=== PATIENT | male | born 1980 | race Caucasian/White ===

== ENCOUNTER → 2016-10-31 | Outpatient (REF) | payer OTHER | LOC: M SFHCLERA 13:36 | PROVIDERS: ATTEND Nurse Practitioner Family | DX: R50.9 Fever, unspecified (principal) ==

== ENCOUNTER → 2017-02-17 | Outpatient (CLI) | payer BC, OTHER | LOC: M RAD 09:05 | PROVIDERS: ATTEND Physician Assistant Medical | DX: R10.84 Generalized abdominal pain (principal); R11.2 Nausea with vomiting, unspecified; R68.81 Early satiety; Z53.9 Procedure and treatment not carried out, unspecified reason ==

== ENCOUNTER → 2017-04-01 | Outpatient (REF) | payer OTHER ==
[~2017-04-01] MED LIST: FISH1000 PO; MAGN30TA2 PO; MULT1TAB10 PO; POTA75TA PO; PROBCAP4 PO; VITA500C2 PO; VITAPOW41 XX
[2017-04-01 12:11] LABS: ANION GAP 8 MEQ/L (8-16); BLOOD UREA NITROGEN 14 MG/DL (7-18); CALCIUM LEVEL 8.5 MG/DL (8.5-10.1); CARBON DIOXIDE LEVEL 27 MEQ/L (21-32); CHLORIDE LEVEL 107 MEQ/L (98-107); CHOLESTEROL LEVEL 243 MG/DL (<200); CREATININE FOR GFR 0.78 MG/DL (0.70-1.30); GLOMERULAR FILTRATION RATE > 60.0 (>60); GLUCOSE, FASTING 96 MG/DL (70-105); POTASSIUM SERUM 4.6 MEQ/L (3.5-5.1); SODIUM LEVEL 142 MEQ/L (136-145); TRIGLYCERIDES LEVEL 173 MG/DL (<150)
== END ==
LOC: M SFHCLERA 09:35
PROVIDERS: ATTEND Family Medicine
DX: E66.09 Other obesity due to excess calories (principal)

== ENCOUNTER → 2017-04-06 | Outpatient (CLI) | payer BC, OTHER ==
--- NOTE | 2017-04-06 10:19 | REP ---
Gastric emptying nuclear scintigraphy: History: Generalized abdominal pain, nausea vomiting, ascites, 14 pounds weight loss. Technique: 1.02 mCi of technetium-99m sulfur colloid was ingested in two scrambled eggs and 6 ounces of water and sequential anterior and posterior images are acquired for an 89-minute imaging observation period. Regions of interest are drawn around the stomach to plot gastric emptying. Scintigraphic findings: Expected T1/2 is 90 minutes. 64 % emptying is observed in this patient during the 89-minute imaging observation period, for a calculated T1/2 in this patient of 54 minutes. Impression: Normal gastric emptying. Signed by Nish Corral MD 04/06/2017 10:10 A
== END ==
LOC: M RAD 07:44
PROVIDERS: ATTEND Physician Assistant Medical
DX: R10.84 Generalized abdominal pain (principal); R11.2 Nausea with vomiting, unspecified; R68.81 Early satiety
CPT/HCPCS: 78264; A9541

== ENCOUNTER → 2017-04-09 | Outpatient (CLI) | payer BC, OTHER ==
[~2017-04-09] MED LIST changes: +E-Z-GAS II EFFERVESCENT PACKET (SODIUM BICARB./CITRIC ACID/SIMETHICONE) As Ordered ONE; +E-Z-HD 98% w/w 340GM SUSP BTL As Ordered ONE; +E-Z-PAQUE 96% w/w SUSP 176GM BTL As Ordered ONE
--- NOTE | 2017-04-09 16:37 | REP ---
UPPER GI WITH SMALL BOWEL FOLLOW THROUGH: The procedure was performed by STEPHEN Mayen under the direct supervision of Dr. Bermudez. All imaging was reviewed with Dr. Bermudez prior to dictation. The patient was able to ingest liquid barium and air in a quantity sufficient to produce a double contrast examination. The oral and pharyngeal stages of deglutition appeared unremarkable. Esophageal transport was prompt and efficient. There was no evidence of esophagitis, stricture, mucosal ring, or hiatal hernia. Gastroesophageal reflux was not observed on this exam. The stomach austin are normally outlined. The rugal folds are smooth and regular. There was no evidence of gastritis, neoplasm or ulcerative disease. At the distal duodenum there is a 2.5 cm stricture followed by a dilated bowel loop. Distal to that there is a 1.5 cm stricture in the proximal jejunum. This is also followed by another dilated bowel loop. There is another less than 1 cm stricture in the proximal jejunum also followed by a dilated bowel loop. These strictures do not cause significant obstruction. Additional liquid barium was given at the end of the examination in order to perform a small bowel follow through. During fluoroscopy gentle palpation of the small bowel loops showed them to be freely movable and pliable. There is a long segment of narrowing leading up to the terminal ileum. These findings are most consistent with Crohn's disease. IMPRESSION: Three areas of stricture in the duodenum and proximal jejunum ranging from 2.5 cm to less than 1 cm. These strictures do not appear to be causing significant obstruction. Long segment of narrowing in the terminal ileum. These findings are most consistent with Crohn's disease. Fluoroscopy time was 10 minutes and 56 seconds. Reviewed by STEPHEN Cuello 04/09/2017 04:46 PEdited and Signed by Ken Bermudez MD 04/12/2017 08:57 A
== END ==
LOC: M RAD 08:37
PROVIDERS: ATTEND Physician Assistant Medical
DX: R11.2 Nausea with vomiting, unspecified (principal); R14.0 Abdominal distension (gaseous); R10.84 Generalized abdominal pain

== ENCOUNTER 2017-04-13 07:28 | Outpatient (CLI) | payer BC, OTHER ==
[~2017-04-13] VITALS: Ht 177.8 cm; Wt 120.2 kg
[~2017-04-13 07:28] MED LIST changes: -E-Z-GAS II EFFERVESCENT PACKET (SODIUM BICARB./CITRIC ACID/SIMETHICONE) As Ordered ONE; -E-Z-HD 98% w/w 340GM SUSP BTL As Ordered ONE; -E-Z-PAQUE 96% w/w SUSP 176GM BTL As Ordered ONE; +LIDOCAINE 2% INJ 100 MG/5 ML SDV (FOR ANES.) As Ordered ONE; +PROPOFOL 200 MG/20 ML VIAL As Ordered ONE
[2017-04-13] MEDS ORDERED: NS 1,000 ML IV SCH (07:45)
--- NOTE | 2017-04-13 08:44 | ROOR ---
Patient Name: Brady Banegas Procedure Date: 04/13/2017 8:19 AM Date of : 1980 Age: 36 Room: [facility] Gender: Male Note Status: Finalized Procedure: Upper GI endoscopy Indications: Epigastric abdominal pain Providers: Elieser RBOLES MD Referring MD: Halie CABALLERO MD Requesting Provider: Medicines: Monitored Anesthesia Care Complications: No immediate complications. Procedure: Pre-Anesthesia Assessment: - The heart rate, respiratory rate, oxygen saturations, blood pressure, adequacy of pulmonary ventilation, and response to care were monitored throughout the procedure. The Endoscope was introduced through the mouth, and advanced to the third part of duodenum. The upper GI endoscopy was accomplished without difficulty. The patient tolerated the procedure well. Findings: The examined esophagus was normal. Mild inflammation was found in the gastric antrum. Biopsies were taken with a cold forceps for Helicobacter pylori testing. Many partially obstructing superficial duodenal ulcers with no stigmata of bleeding were found in the duodenal bulb, in the first portion of the duodenum and in the second portion of the duodenum. The largest lesion was 2 mm in largest dimension. This was biopsied with a cold forceps for histology and evaluation of inflammatory bowel disease. Impression: - Normal esophagus. - Mild Gastritis. Biopsied. - Multiple shallow erosions and ulcerations, along with a deformed duodenum with several stenotic areas in first and second portions of duodenum-scope passes through stenoses (just barely) into third portion of duodenum which is normal. Biopsied--r/o IBD. Recommendation: - Await pathology results. - Fasting Serum gastrin levels (off PPI).(will order today) Elieser Robles MD Elieser ROBLES MD 04/13/2017 8:43:31 AM This report has been signed electronically. Number of Addenda: 0 Note Initiated On: 04/13/2017 8:19 AM Estimated Blood Loss: Estimated blood loss: none.
[2017-04-13] MEDS ORDERED: PROPOFOL 200 MG/20 ML VIAL As Ordered ONE (08:57)
--- NOTE | 2017-04-13 09:06 | ROOR ---
Patient Name: Brady Banegas Procedure Date: 04/13/2017 8:19 AM Date of : 1980 Age: 36 Room: [facility] Gender: Male Note Status: Finalized Procedure: Colonoscopy Indications: Generalized abdominal pain, Exclusion of colitis, Exclusion of irritable bowel syndrome Providers: Elieser ROBLES MD Referring MD: Halie CABALLERO MD Requesting Provider: Medicines: Monitored Anesthesia Care Complications: No immediate complications. Procedure: Pre-Anesthesia Assessment: - The heart rate, respiratory rate, oxygen saturations, blood pressure, adequacy of pulmonary ventilation, and response to care were monitored throughout the procedure. The Colonoscope was introduced through the anus and advanced to 2 cm into the ileum. The colonoscopy was performed without difficulty. The patient tolerated the procedure well. The quality of the bowel preparation was good. Findings: The perianal and digital rectal examinations were normal. The colon (entire examined portion) appeared normal. The terminal ileum contained a benign-appearing, intrinsic moderate stenosis that was non-traversed. Biopsies were taken with a cold forceps for histology. Impression: - The entire examined colon is normal. - Stricture and ulceration erosion in the terminal ileum. Visually suggestive of IBD (crohns disease). Biopsied. Recommendation: - Await pathology results. - Return to my office at the next available appointment. - Perform a CT enterography at appointment to be scheduled. - To discuss todays findings, my office will call you in the next few days to schedule xray and a follow up appointment. Elieser Robles MD Elieser ROBLES MD 04/13/2017 9:05:53 AM This report has been signed electronically. Number of Addenda: 0 Note Initiated On: 04/13/2017 8:19 AM Estimated Blood Loss: Estimated blood loss: none.
[2017-04-13 09:45] VITALS: BP 108/57
[2017-04-24 10:52] LABS: PROMETHEUS IBD ANTIBODIES SEE SEPARATE REPORT
[2017-04-24 10:53] LABS: PROMETHEUS IBD SNP SEE SEPARATE REPORT
== END 2017-04-13 10:03 | disposition home or self-care (01) ==
LOC: M OPP 07:28
PROVIDERS: ATTEND Internal Medicine Gastroenterology
DX: R10.84 Generalized abdominal pain (principal); K56.69 Other intestinal obstruction; K29.70 Gastritis, unspecified, without bleeding; K29.80 Duodenitis without bleeding; K26.9 Duodenal ulcer, unspecified as acute or chronic, without hemorrhage or perforation; F17.290 Nicotine dependence, other tobacco product, uncomplicated

== ENCOUNTER → 2017-05-12 | Outpatient (CLI) | payer BC, OTHER ==
[~2017-05-12] MED LIST changes: -LIDOCAINE 2% INJ 100 MG/5 ML SDV (FOR ANES.) As Ordered ONE; -PROPOFOL 200 MG/20 ML VIAL As Ordered ONE
[2017-05-12 14:15] LABS: BASO % 0.4 % (0.0-1.0); EOS # 0.1 K/mm3 (0.0-0.50); EOS % 1.3 % (0.0-3.0); LARGE UNSTAINED CELL # 0.2 K/mm3 (0.0-0.4); LARGE UNSTAINED CELL % 1.6 % (0.0-4.0); LYMPH # 2.8 K/mm3 (1.5-4.5); LYMPH % 26.1 % (24.0-44.0); MEAN CORPUSCULAR HEMOGLOBIN 28.9 pg (27.0-33.0); MEAN CORPUSCULAR HGB CONC 34.8 g/dl (32.0-36.5); MEAN CORPUSCULAR VOLUME 83.1 fl (80.0-96.0); MONO # 0.4 K/mm3 (0.0-0.8); NEUTROPHILS # 7.1 K/mm3 (1.8-7.7); NEUTROPHILS % 66.6 % (36.0-66.0); PLATELET COUNT, AUTOMATED 279 k/mm3 (150-450); RED CELL DISTRIBUTION WIDTH 12.9 % (11.5-14.5); WHITE BLOOD COUNT 10.6 K/mm3 (4.0-10.0)
[2017-05-12 14:35] LABS: VITAMIN B12 LEVEL 625 PG/ML (247-911)
[2017-05-12 14:36] LABS: FOLATE 20.5 NG/ML (>5.4)
[2017-05-12 15:48] LABS: ALBUMIN 3.9 GM/DL (3.2-5.2); ALBUMIN/GLOBULIN RATIO 1.15 (1.00-1.93); ALKALINE PHOSPHATASE 81 U/L (45-117); ALT/SGPT 45 U/L (12-78); ANION GAP 10 MEQ/L (8-16); AST/SGOT 16 U/L (15-37); BILIRUBIN,TOTAL 0.3 MG/DL (0.2-1.0); BLOOD UREA NITROGEN 10 MG/DL (7-18); CALCIUM LEVEL 9.3 MG/DL (8.5-10.1); CARBON DIOXIDE LEVEL 27 MEQ/L (21-32); CHLORIDE LEVEL 102 MEQ/L (98-107); CREATININE FOR GFR 0.85 MG/DL (0.70-1.30); GLOMERULAR FILTRATION RATE > 60.0 (>60); GLUCOSE, FASTING 124 MG/DL (70-105); POTASSIUM SERUM 4.1 MEQ/L (3.5-5.1); SODIUM LEVEL 139 MEQ/L (136-145); TOTAL PROTEIN 7.3 GM/DL (6.4-8.2)
== END ==
LOC: M LAB 13:14
PROVIDERS: ATTEND Internal Medicine Gastroenterology
DX: K50.012 Crohn's disease of small intestine with intestinal obstruction (principal)

== ENCOUNTER → 2017-06-01 | Outpatient (CLI) | payer BC, OTHER ==
[2017-06-22 07:15] LABS: TPMTGEN1 SEE SEPARATE REPORT
[2017-06-22 07:16] LABS: THIOPURINE METHYLTRANSFERASE 24.3 EU (> 21.0)
== END ==
LOC: M LAB 12:19
PROVIDERS: ATTEND Internal Medicine Gastroenterology
DX: K50.012 Crohn's disease of small intestine with intestinal obstruction (principal)

== ENCOUNTER → 2017-07-02 | Outpatient (CLI) | payer OTHER ==
[2017-07-02 16:20] LABS: BASO # 0.1 10^3/uL (0.0-0.2); BASO % 0.8 % (0.0-1.0); EOS % 0.1 % (0.0-3.0); IMMATURE GRANULOCYTE % 0.4 % (0-0); LYMPH # 3.7 10^3/uL (1.5-4.5); LYMPH % 34.4 % (24.0-44.0); MEAN CORPUSCULAR HEMOGLOBIN 27.4 pg (27.0-33.0); MEAN CORPUSCULAR VOLUME 85.5 fl (80.0-96.0); MONO # 0.9 10^3/uL (0.0-0.8); NEUTROPHILS % 56.3 % (36.0-66.0); PLATELET COUNT, AUTOMATED 290 10^3/uL (150-450); RED CELL DISTRIBUTION WIDTH 13.6 % (11.5-14.5); WHITE BLOOD COUNT 10.7 10^3/uL (4.0-10.0)
[2017-07-02 16:41] LABS: ALBUMIN 3.8 GM/DL (3.2-5.2); ALBUMIN/GLOBULIN RATIO 1.36 (1.00-1.93); ALKALINE PHOSPHATASE 75 U/L (45-117); ALT/SGPT 46 U/L (12-78); ANION GAP 10 MEQ/L (8-16); AST/SGOT 15 U/L (7-37); BILIRUBIN,TOTAL 0.4 MG/DL (0.2-1.0); BLOOD UREA NITROGEN 12 MG/DL (7-18); CARBON DIOXIDE LEVEL 28 MEQ/L (21-32); CHLORIDE LEVEL 103 MEQ/L (98-107); GLOMERULAR FILTRATION RATE > 60.0 (>60); GLUCOSE, FASTING 97 MG/DL (70-105); POTASSIUM SERUM 4.4 MEQ/L (3.5-5.1); SODIUM LEVEL 141 MEQ/L (136-145); TOTAL PROTEIN 6.6 GM/DL (6.4-8.2)
== END ==
LOC: M LRY 12:37
PROVIDERS: ATTEND Internal Medicine Gastroenterology
DX: K50.012 Crohn's disease of small intestine with intestinal obstruction (principal)

== ENCOUNTER 2017-07-10 16:32 | Emergency (ER) | payer BC, OTHER ==
[~2017-07-10] VITALS: Ht 177.8 cm; Wt 128.6 kg
[2017-07-10] MEDS ORDERED: AZAT50TA2 PO (16:46)
[2017-07-10] MEDS ORDERED: OMEP40CA2 PO (16:46)
[2017-07-10] MEDS ORDERED: BUDE3CAP PO (16:46)
[2017-07-10] MEDS ORDERED: PANTOPRAZOLE 40MG INJ (PROTONIX) (C9113) IV ONE (18:30)
[2017-07-10] MEDS ORDERED: methylPREDNISolone INJ 125 MG/2 ML VIAL (J2930) IV ONE (18:30)
[2017-07-10] MEDS ORDERED: NS 1,000 ML IV ONE (18:30)
[2017-07-10] MEDS ORDERED: ONDANSETRON 4MG/2ML VIAL (J2405) IV ONE (18:30)
[2017-07-10 18:37] LABS: BASO # 0.1 10^3/uL (0.0-0.2); BASO % 0.4 % (0.0-1.0); IMMATURE GRANULOCYTE % 0.3 % (0-0); LYMPH # 1.4 10^3/uL (1.5-4.5); LYMPH % 9.1 % (24.0-44.0); MEAN CORPUSCULAR HGB CONC 33.5 g/dl (32.0-36.5); MEAN CORPUSCULAR VOLUME 83.4 fl (80.0-96.0); MONO % 6.4 % (0.0-5.0); NEUTROPHILS % 83.8 % (36.0-66.0); PLATELET COUNT, AUTOMATED 276 10^3/uL (150-450); RED CELL DISTRIBUTION WIDTH 13.3 % (11.5-14.5); WHITE BLOOD COUNT 15.5 10^3/uL (4.0-10.0)
[2017-07-10 18:59] LABS: ALBUMIN 3.9 GM/DL (3.2-5.2); ALBUMIN/GLOBULIN RATIO 1.18 (1.00-1.93); ALKALINE PHOSPHATASE 83 U/L (45-117); ALT/SGPT 37 U/L (12-78); ANION GAP 10 MEQ/L (8-16); AST/SGOT 12 U/L (7-37); BILIRUBIN,DIRECT 0.1 MG/DL (0.0-0.2); BILIRUBIN,TOTAL 0.5 MG/DL (0.2-1.0); BLOOD UREA NITROGEN 11 MG/DL (7-18); CARBON DIOXIDE LEVEL 24 MEQ/L (21-32); CHLORIDE LEVEL 104 MEQ/L (98-107); CREATININE FOR GFR 0.79 MG/DL (0.70-1.30); GLOMERULAR FILTRATION RATE > 60.0 (>60); GLUCOSE, FASTING 93 MG/DL (70-105); POTASSIUM SERUM 4.2 MEQ/L (3.5-5.1); SODIUM LEVEL 138 MEQ/L (136-145); TOTAL PROTEIN 7.2 GM/DL (6.4-8.2)
[2017-07-10] MEDS ORDERED: GASTROGRAFIN SOLUTION 30ML PO ONE (19:00)
[2017-07-10] MEDS ORDERED: ISOVUE-370 76% 100ML VIAL (Q9967) As Ordered ONE (19:52)
[2017-07-10] MEDS ORDERED: GASTROGRAFIN SOLUTION 30ML (Q9963) PO ONE (20:00)
--- NOTE | 2017-07-10 21:30 | REPUSA ---
CT of the abdomen and pelvis with contrast Clinical statement: Pain. Technique: Multiple axial CT images were obtained from the base of the lungs through the floor of the pelvis utilizing 5 mm axial slices after administration of oral and nonionic intravenous contrast. C oronal and sagittal reconstructions were also obtained. No comparison is available. Findings: Chest: The visualized lung bases are clear. Abdomen: The liver, spleen, pancreas, kidneys, gallbladder, and adrenal glands are unremarkable. The aorta is within normal limits. There is no evidence of abdominal lymphadenopathy or ascites. Pelvis: There is a long segment of bowel wall thickening involving the terminal ileum. No obstructive bowel changes are noted. The appendix is normal. The urinary bladder is within normal limits. The ot her pelvic structures appear grossly intact. There is no evidence of pelvic lymphadenopathy or ascite s. Bones: There are no suspicious osseous abnormalities seen. Impression: 1. Focal bowel wall thickening involving the terminal ileum. The remainder of the bowel is unremarkab le. The findings suggest an infectious or inflammatory colitis. Crohn's disease cannot be excluded. F ollow-up is suggested as clinically indicated.
[2017-07-10] MEDS ORDERED: FLAG500T PO (21:51)
[2017-07-10] MEDS ORDERED: CIPR-249 PO (21:51)
[2017-07-10] MEDS ORDERED: ZOFR4TAB3 PO (21:51)
[2017-07-10] MEDS ORDERED: PRED10TA2 PO (21:51)
[2017-07-10 22:10] VITALS: BP 138/73
== END 2017-07-10 22:12 | disposition home or self-care (01) ==
LOC: M ED 16:32
DX: K50.00 Crohn's disease of small intestine without complications (principal); K85.90 Acute pancreatitis without necrosis or infection, unspecified; Z87.891 Personal history of nicotine dependence
CPT/HCPCS: 74177; 80048; 80076; 81001; 83605; 83690; 85025; 96374; 96375; 99284; C9113; J2405; J2930; Q9963; Q9967

== ENCOUNTER 2017-07-13 13:46 | Emergency (ER) | payer BC, OTHER ==
[~2017-07-13] VITALS: Ht 177.8 cm; Wt 124.5 kg
[2017-07-13 13:46] VITALS: BP 125/76
[~2017-07-13 13:46] MED LIST changes: -POTA99TA PO; -VITA1CAP2 PO
[2017-07-14] MEDS ORDERED: POTA99TA PO (08:57)
[2017-07-14] MEDS ORDERED: VITA1CAP2 PO (08:57)
== END 2017-07-13 14:07 | disposition left against medical advice (07) ==
LOC: M ED 13:46
DX: Z53.21 Procedure and treatment not carried out due to patient leaving prior to being seen by health care provider (principal)

== ENCOUNTER → 2017-07-13 | Outpatient (CLI) | payer BC, OTHER ==
[~2017-07-13] MED LIST changes: +AZAT50TA2 PO; +BUDE3CAP PO; +CIPR-249 PO; +FLAG500T PO; +OMEP40CA2 PO; +POTA99TA PO; +PRED10TA2 PO; +VITA1CAP2 PO; +ZOFR4TAB3 PO
[2017-07-13 15:04] LABS: BASO % 0.2 % (0.0-1.0); IMMATURE GRANULOCYTE % 0.7 % (0-0); LYMPH # 1.1 10^3/uL (1.5-4.5); LYMPH % 9.3 % (24.0-44.0); MEAN CORPUSCULAR HEMOGLOBIN 27.7 pg (27.0-33.0); MEAN CORPUSCULAR HGB CONC 33.2 g/dl (32.0-36.5); MEAN CORPUSCULAR VOLUME 83.5 fl (80.0-96.0); MONO # 0.6 10^3/uL (0.0-0.8); MONO % 5.1 % (0.0-5.0); NEUTROPHILS # 10.1 10^3/uL (1.8-7.7); NEUTROPHILS % 84.7 % (36.0-66.0); PLATELET COUNT, AUTOMATED 334 10^3/uL (150-450); RED CELL DISTRIBUTION WIDTH 13.6 % (11.5-14.5); WHITE BLOOD COUNT 11.9 10^3/uL (4.0-10.0)
[2017-07-13 15:34] LABS: VITAMIN B12 LEVEL 595 PG/ML
[2017-07-13 15:39] LABS: ALBUMIN 3.5 GM/DL (3.2-5.2); ALBUMIN/GLOBULIN RATIO 1.06 (1.00-1.93); ALKALINE PHOSPHATASE 71 U/L (45-117); ALT/SGPT 40 U/L (12-78); ANION GAP 10 MEQ/L (8-16); AST/SGOT 12 U/L (7-37); BILIRUBIN,TOTAL 0.4 MG/DL (0.2-1.0); BLOOD UREA NITROGEN 10 MG/DL (7-18); CALCIUM LEVEL 9.2 MG/DL (8.5-10.1); CARBON DIOXIDE LEVEL 25 MEQ/L (21-32); CHLORIDE LEVEL 102 MEQ/L (98-107); CREATININE FOR GFR 0.83 MG/DL (0.70-1.30); GLOMERULAR FILTRATION RATE > 60.0 (>60); GLUCOSE, FASTING 121 MG/DL (70-105); POTASSIUM SERUM 4.3 MEQ/L (3.5-5.1); SODIUM LEVEL 137 MEQ/L (136-145); TOTAL PROTEIN 6.8 GM/DL (6.4-8.2)
== END ==
LOC: M LAB 14:07
PROVIDERS: ATTEND Internal Medicine Gastroenterology
DX: K50.012 Crohn's disease of small intestine with intestinal obstruction (principal)

== ENCOUNTER 2017-07-14 05:36 | Inpatient (IN) | payer BC, OTHER ==
[~2017-07-14] VITALS: Ht 177.8 cm; Wt 121.6 kg
[2017-07-14 06:48] LABS: BASO % 0.3 % (0.0-1.0); IMMATURE GRANULOCYTE % 0.4 % (0-0); LYMPH # 2.4 10^3/uL (1.5-4.5); LYMPH % 17.8 % (24.0-44.0); MEAN CORPUSCULAR HEMOGLOBIN 27.7 pg (27.0-33.0); MEAN CORPUSCULAR HGB CONC 33.9 g/dl (32.0-36.5); MEAN CORPUSCULAR VOLUME 81.5 fl (80.0-96.0); MONO # 1.2 10^3/uL (0.0-0.8); MONO % 8.8 % (0.0-5.0); NEUTROPHILS # 9.7 10^3/uL (1.8-7.7); NEUTROPHILS % 72.7 % (36.0-66.0); PLATELET COUNT, AUTOMATED 320 10^3/uL (150-450); RED CELL DISTRIBUTION WIDTH 13.4 % (11.5-14.5); WHITE BLOOD COUNT 13.4 10^3/uL (4.0-10.0)
[2017-07-14 06:50] LABS: ALBUMIN 3.5 GM/DL (3.2-5.2); ALKALINE PHOSPHATASE 67 U/L (45-117); ALT/SGPT 40 U/L (12-78); ANION GAP 10 MEQ/L (8-16); AST/SGOT 14 U/L (7-37); BILIRUBIN,DIRECT < 0.1 MG/DL (0.0-0.2); BILIRUBIN,TOTAL 0.4 MG/DL (0.2-1.0); BLOOD UREA NITROGEN 8 MG/DL (7-18); CARBON DIOXIDE LEVEL 23 MEQ/L (21-32); CHLORIDE LEVEL 103 MEQ/L (98-107); CREATININE FOR GFR 0.77 MG/DL (0.70-1.30); GLOMERULAR FILTRATION RATE > 60.0 (>60); GLUCOSE, FASTING 108 MG/DL (70-105); POTASSIUM SERUM 3.5 MEQ/L (3.5-5.1); SODIUM LEVEL 136 MEQ/L (136-145)
[2017-07-14] MEDS ORDERED: NS 1,000 ML IV ONE (07:00)
[2017-07-14 07:13] LABS: AMYLASE 79 U/L (25-115)
[2017-07-14] MEDS ORDERED: MORPHINE 4 MG/ML 1ML SYRINGE IV ONE ×2 (07:15→09:00)
[2017-07-14] MEDS ORDERED: ONDANSETRON 4MG/2ML VIAL (J2405) IV ONE (07:15)
[2017-07-14 07:35] LABS: CHOLESTEROL LEVEL 180 MG/DL (<200); TRIGLYCERIDES LEVEL 138 MG/DL (<150)
--- NOTE | 2017-07-14 08:25 | REP ---
Clinical: Pancreatitis and upper abdominal pain. Technique: Real time garrett scale ultrasound examination using curved array transducer. Findings: Diffuse fatty infiltration the liver is appreciated without focal hepatic lesion identified. The gallbladder is moderately distended measuring 12.8 cm in length and 6 cm diameter with layering sludge. No gallbladder wall thickening, pericholecystic fluid or sonographic Pressley's sign was elicited during examination. Common bile duct is upper limits of normal and 7 mm diameter. Visualized portions of the pancreas are unremarkable. The right kidney is normal in reniform shape without hydronephrosis and measures 12.5 x 6.9 x 6.3 cm. No ascites in the visualized right upper quadrant. Impression: 1. Hepatic steatosis. 2. Distended gallbladder with layering sludge and prominent common bile duct measuring 7 mm diameter. No sonographic Pressley's sign elicited. Signed by Jethro Aldridge MD 07/14/2017 08:15 A
[2017-07-14] MEDS ORDERED: VITA1CAP2 PO (08:57)
[2017-07-14] MEDS ORDERED: POTA99TA PO (08:57)
[2017-07-14] MEDS: ENOXAPARIN 40 MG/0.4 ML SYRINGE (J1650) SC SCH (09:00)
[2017-07-14] MEDS: PANTOPRAZOLE 40MG INJ (PROTONIX) (C9113) IV SCH (09:00)
[2017-07-14] MEDS ORDERED: ONDANSETRON 4MG/2ML VIAL (J2405) IV PRN (10:30)
[2017-07-14] MEDS: NS 1,000 ML IV SCH ×3 (12:48→19:44)
[2017-07-14] MEDS: MORPHINE 2 MG/ML 1ML SYRINGE IV PRN ×2 (12:49→18:42)
[2017-07-14 14:00] VITALS: BP 121/71
--- NOTE | 2017-07-14 16:09 | HPE ---
DATE OF ADMISSION: 07/14/2017 PRIMARY CARE PROVIDER: Dr. Yuki Paulino GASTROINTESTINAL (GI) SPECIALIST: Dr. Robles HISTORY OF PRESENT ILLNESS: The patient is a 36-year-old male with a past medical history significant for Crohn's disease and gastroesophageal reflux disease (GERD) who presented to [facility] on 07/14/2017 for persistent epigastric abdominal pain. The patient was diagnosed with Crohn's disease since six months ago. The patient was started on different medication for his Crohn's. The patient has also been started on Imuran. Last Wednesday, the patient started having epigastric pain with radiation to the upper and lower back. The pain is constant, crampy type of pain. The patient has been taking Tylenol and ibuprofen multiple times in a day. It only offered limited relief. The patient stated that eating food makes the pain worse. The patient came to the emergency room on 07/10/2017 and the patient got the antinausea medication and the patient was given steroid pills. The patient was discharged home from the emergency department (ED). The patient stated that the pain initially improved but recurred within three hours. The patient had a followup with his gastrointestinal (GI) specialist, Dr. Robles, on 07/13/2017 and there is a suspicion that the patient's medication is causing the symptoms, so Imuran has been on hold in the last 24 hours. However, even with the discontinuation of the medication, the patient continued to have persistent symptoms. Therefore, the patient came to [facility] on 07/14/2017 for further evaluation and treatment. PAST MEDICAL HISTORY: 1. Crohn's disease diagnosed in the last six months. 2. Gastroesophageal reflux disease (GERD). PAST SURGICAL HISTORY: 1. Tonsillectomy. 2. Bilateral vasectomy. HOME MEDICATIONS: - budesonide 9 mg by mouth daily - vitamin D 1000 units by mouth daily - Bacid one tablet by mouth daily - multivitamin one tablet by mouth daily - omeprazole 40 mg by mouth daily - Zofran 4 mg by mouth every four hours as needed - prednisone tapering dose SOCIAL HISTORY: The patient has been smoking for the past 20 years but he switched from actual cigarettes to electronic cigarettes since 6-7 years ago. He rarely drinks alcohol. Denies any recreational drug use. 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 REVIEW OF SYSTEMS: GENERAL: No fever. No chills. HEENT: No vision change. No auditory changes. CARDIOVASCULAR: No chest pain. No palpitations. RESPIRATORY: No cough. No sputum production. No wheezes. ABDOMEN: Epigastric upper abdominal pain that started on 07/06/2017. It has been persistent with radiation to the upper and lower back. The patient was diagnosed with Crohn's disease in the last six months. MUSCULOSKELETAL: Denies any other muscle pain or joint pain. NEUROLOGICAL: Denies any numbness or tingling. OBJECTIVE: VITAL SIGNS: Temperature is 97.6, pulse is 80, respiratory rate 20, blood pressure is 117/59, pulse oximetry is 93% on room air. GENERAL: Mild to moderate distress secondary to persistent abdominal pain, alert and oriented times three. HEENT: Normocephalic, atraumatic. Extraocular motor grossly intact. CARDIOVASCULAR: Positive S1, S2, regular rate. LUNGS: Clear to auscultation bilaterally. ABDOMEN: Soft, tender to palpation in the epigastric right upper abdomen with radiation to the posterior back with direct pressure. No rebound. Bowel sounds present. EXTREMITIES: No edema. No cyanosis. LABORATORY DATA: WBC 13.4, hemoglobin 14.7, hematocrit is 43.3, platelet count is 320. Sodium is 136, potassium 3.5, chloride 103, carbon dioxide 23, BUN 8, creatinine 0.77, GFR greater than 60, fasting glucose 108, calcium is 9, total bilirubin 0.4, direct bilirubin less than 0.1, AST 14, ALT 40, alkaline phosphatase is 67, total protein 7, albumin 3.5, triglycerides 138, total cholesterol is 180, LDL is 97.4, amylase is 79, lipase is 68. Gallbladder ultrasound shows hepatic steatosis, distended gallbladder with layering slush and prominent common bile duct measuring 7 mm in diameter. No sonographic Pressley's sign. ASSESSMENT AND PLAN: 1. Pancreatitis. The patient will be admitted to the medical/surgical floor under inpatient status. The patient placed on nothing by mouth. The patient is started on IV normal saline for fluid support. The patient also has IV morphine for pain control. The patient has as-needed IV Zofran. Lipid profile within normal range. The patient's new medication has been discontinued since yesterday, Imuran. We will continue to follow the lipase level. Continue to treat the patient with medical management. No stone is visualized on the gallbladder ultrasound. 2. Crohn's disease. Continue on budesonide. 3. Gastroesophageal reflux disease (GERD), on IV Protonix. 4. Deep vein thrombosis (DVT) prophylaxis, on Lovenox.
[2017-07-14] MEDS: BUDESONIDE EC 3 MG CAP (ENTOCORT EC) PO SCH (18:40)
[2017-07-14 22:00] VITALS: BP 133/74
[2017-07-15] MEDS: MORPHINE 2 MG/ML 1ML SYRINGE IV PRN ×2 (01:06→03:49)
[2017-07-15] MEDS: NS 1,000 ML IV SCH ×2 (03:45→20:05)
[2017-07-15 06:00] VITALS: BP 152/89
[2017-07-15 07:28] LABS: MEAN CORPUSCULAR HEMOGLOBIN 27.8 pg (27.0-33.0); MEAN CORPUSCULAR HGB CONC 33.5 g/dl (32.0-36.5); PLATELET COUNT, AUTOMATED 281 10^3/uL (150-450); RED CELL DISTRIBUTION WIDTH 13.4 % (11.5-14.5); WHITE BLOOD COUNT 10.9 10^3/uL (4.0-10.0)
[2017-07-15 07:33] LABS: ANION GAP 10 MEQ/L (8-16); BLOOD UREA NITROGEN 9 MG/DL (7-18); CALCIUM LEVEL 8.8 MG/DL (8.5-10.1); CARBON DIOXIDE LEVEL 25 MEQ/L (21-32); CHLORIDE LEVEL 104 MEQ/L (98-107); CREATININE FOR GFR 0.67 MG/DL (0.70-1.30); GLOMERULAR FILTRATION RATE > 60.0 (>60); GLUCOSE, FASTING 74 MG/DL (70-105); MAGNESIUM LEVEL 2.1 MG/DL (1.8-2.4); POTASSIUM SERUM 3.7 MEQ/L (3.5-5.1); SODIUM LEVEL 139 MEQ/L (136-145)
[2017-07-15] MEDS: PANTOPRAZOLE 40MG INJ (PROTONIX) (C9113) IV SCH (10:02)
[2017-07-15] MEDS: BUDESONIDE EC 3 MG CAP (ENTOCORT EC) PO SCH (10:03)
[2017-07-15] MEDS: ENOXAPARIN 40 MG/0.4 ML SYRINGE (J1650) SC SCH (10:03)
[2017-07-15 14:00] VITALS: BP 139/80
[2017-07-15] MEDS: ACETAMINOPHEN TAB 650MG DOSE (2X325MG) PO PRN (20:09)
[2017-07-15 22:00] VITALS: BP 124/74
--- NOTE | 2017-07-16 01:08 | IPN ---
DATE OF SERVICE: 07/15/2017 SUBJECTIVE: Patient seen and examined in the room today. Patient stated that the pain is improving; however, it is still persistent, but the pain is tolerable. Patient does not need the intravenous (IV) morphine to help control the pain since 3:50 a.m. this morning. No overnight events reported. OBJECTIVE: VITAL SIGNS: Temperature 98.3, pulse 78, respirations 18, blood pressure 152/89, pulse oximetry is 94% in room air. GENERAL: No sign of acute distress. Oriented times three. HEENT: Normocephalic, atraumatic. Extraocular motor grossly intact. CARDIOVASCULAR: Positive S1, S2, regular rate. LUNGS: Clear to auscultation bilaterally. ABDOMEN: Still some minor tenderness to palpation in the right upper abdomen. Bowel sounds present. No rebound. EXTREMITIES: No edema. No cyanosis. LABORATORY DATA: WBC 10.9, hemoglobin 14.3, hematocrit 42.4, platelet count is 281. Sodium is 139, potassium 3.7, chloride 104, carbon dioxide 25, BUN 9, creatinine 0.67, GFR greater than 60, fasting glucose 74, calcium 8.8, magnesium 2.1, lipase 566. ASSESSMENT: 1. Acute pancreatitis. Patient nothing by mouth. Continue on the intravenous (IV) fluid support. Patient's pain is improving. Lipase continues to trend down. However, patient still has persistent pain. Will continue to follow with repeat lipase. Will consider resuming the diet tomorrow. 2. Crohn's disease. On budesonide. 3. Gastroesophageal reflux disease. On IV Protonix. 4. Deep venous thrombosis (DVT) prophylaxis. On Lovenox. Encourage ambulation.
[2017-07-16] MEDS: NS 1,000 ML IV SCH ×3 (03:54→23:18)
[2017-07-16 06:00] VITALS: BP 151/91
[2017-07-16] MEDS: ACETAMINOPHEN TAB 650MG DOSE (2X325MG) PO PRN ×2 (06:02→20:20)
[2017-07-16 06:30] LABS: MEAN CORPUSCULAR HEMOGLOBIN 27.1 pg (27.0-33.0); MEAN CORPUSCULAR HGB CONC 32.8 g/dl (32.0-36.5); MEAN CORPUSCULAR VOLUME 82.7 fl (80.0-96.0); PLATELET COUNT, AUTOMATED 286 10^3/uL (150-450); RED CELL DISTRIBUTION WIDTH 13.2 % (11.5-14.5); WHITE BLOOD COUNT 10.8 10^3/uL (4.0-10.0)
[2017-07-16 06:47] LABS: ANION GAP 10 MEQ/L (8-16); BLOOD UREA NITROGEN 11 MG/DL (7-18); CALCIUM LEVEL 8.9 MG/DL (8.5-10.1); CARBON DIOXIDE LEVEL 25 MEQ/L (21-32); CHLORIDE LEVEL 102 MEQ/L (98-107); CREATININE FOR GFR 0.69 MG/DL (0.70-1.30); GLOMERULAR FILTRATION RATE > 60.0 (>60); GLUCOSE, FASTING 80 MG/DL (70-105); MAGNESIUM LEVEL 1.9 MG/DL (1.8-2.4); POTASSIUM SERUM 3.7 MEQ/L (3.5-5.1); SODIUM LEVEL 137 MEQ/L (136-145)
[2017-07-16] MEDS: ENOXAPARIN 40 MG/0.4 ML SYRINGE (J1650) SC SCH (07:53)
[2017-07-16] MEDS: BUDESONIDE EC 3 MG CAP (ENTOCORT EC) PO SCH (10:08)
[2017-07-16] MEDS: PANTOPRAZOLE 40MG INJ (PROTONIX) (C9113) IV SCH (10:08)
[2017-07-16 14:00] VITALS: BP 154/84
--- NOTE | 2017-07-16 14:50 | IPNPDOC ---
Text Note Date of Service The patient was seen on 07/16/17. NOTE SUBJECTIVE: Patient seen and examined in the room today. Patient stated that the pain has significant improvement. He has not used morphine for the past 24 hours. He had good bowel movements. He would like to advance the diet. No overnight events reported. OBJECTIVE: VITAL SIGNS: Listed below GENERAL: No sign of acute distress. Oriented times three. HEENT: Normocephalic, atraumatic. Extraocular motor grossly intact. CARDIOVASCULAR: Positive S1, S2, regular rate. LUNGS: Clear to auscultation bilaterally. ABDOMEN: Still some minor tenderness to palpation in the right upper abdomen. Bowel sounds present. No rebound. EXTREMITIES: No edema. No cyanosis. LABORATORY DATA: Listed below ASSESSMENT: 1. Acute pancreatitis. Pain is improving. Patient has been on nothing by mouth. Will advance to liquid diet today. Continue on the intravenous (IV) fluid support. Continue monitoring patient clinically and continue to follow lipase. 2. Crohn's disease. On budesonide. 3. Gastroesophageal reflux disease. On IV Protonix. 4. Deep venous thrombosis (DVT) prophylaxis. On Lovenox. Encourage ambulation. VS,Fishbone, I+O VS, Fishbone, I+O Laboratory Tests 07/16/17 06:02 Red Blood Count 5.31, Mean Corpuscular Volume 82.7, Mean Corpuscular Hemoglobin 27.1, Mean Corpuscular Hemoglobin Concent 32.8, Red Cell Distribution Width 13.2 , Calcium Level 8.9 Vital Signs Date Time Temp Pulse Resp B/P (MAP) Pulse Ox O2 Delivery O2 Flow Rate FiO2 07/16/17 06:00 97.0 75 18 151/91 (111) 97 Room Air I&O- Last 24 Hours up to 6 AM 07/17/17 06:00 Intake Total 1440 ml Balance 1440 ml ROBINSON CHADWICK DO Jul 16, 2017 14:50
[2017-07-16 22:00] VITALS: BP 126/87
[2017-07-17 05:50] LABS: MEAN CORPUSCULAR HEMOGLOBIN 27.6 pg (27.0-33.0); MEAN CORPUSCULAR HGB CONC 33.2 g/dl (32.0-36.5); MEAN CORPUSCULAR VOLUME 83.3 fl (80.0-96.0); PLATELET COUNT, AUTOMATED 340 10^3/uL (150-450); RED CELL DISTRIBUTION WIDTH 13.1 % (11.5-14.5); WHITE BLOOD COUNT 11.5 10^3/uL (4.0-10.0)
[2017-07-17 06:00] VITALS: BP 135/90
[2017-07-17 06:07] LABS: ANION GAP 8 MEQ/L (8-16); BLOOD UREA NITROGEN 8 MG/DL (7-18); CALCIUM LEVEL 9.1 MG/DL (8.5-10.1); CARBON DIOXIDE LEVEL 26 MEQ/L (21-32); CHLORIDE LEVEL 105 MEQ/L (98-107); CREATININE FOR GFR 0.69 MG/DL (0.70-1.30); GLOMERULAR FILTRATION RATE > 60.0 (>60); GLUCOSE, FASTING 90 MG/DL (70-105); MAGNESIUM LEVEL 2.1 MG/DL (1.8-2.4); POTASSIUM SERUM 3.6 MEQ/L (3.5-5.1); SODIUM LEVEL 139 MEQ/L (136-145)
[2017-07-17] MEDS: NS 1,000 ML IV SCH (08:13)
[2017-07-17] MEDS: BUDESONIDE EC 3 MG CAP (ENTOCORT EC) PO SCH (08:13)
[2017-07-17] MEDS: ENOXAPARIN 40 MG/0.4 ML SYRINGE (J1650) SC SCH (08:13)
[2017-07-17] MEDS: PANTOPRAZOLE 40MG INJ (PROTONIX) (C9113) IV SCH (08:13)
--- NOTE | 2017-07-17 17:34 | DSES ---
DATE OF ADMISSION: 07/14/2017 DATE OF DISCHARGE: 07/17/2017 PRIMARY CARE PROVIDER: Dr. Yuki Paulino CONSULTANTS: None. PROCEDURES: None. DISCHARGE DIAGNOSES: 1. Acute pancreatitis. 2. Crohn's disease. 3. Gastroesophageal reflux disease. HOSPITALIZATION COURSE: Patient is a 36-year-old male who presented to [facility] on 07/14/2017 for persistent worsening of abdominal pain. Patient was admitted to [facility] with a diagnosis of acute pancreatitis, possibly due to the medications. Patient was placed on nothing by mouth, started on intravenous (IV) fluid hydration, and patient is also receiving as-needed morphine for pain control. With conservative medical management, patient is able to have improvement of the symptoms, and patient is able to manage the patient without medications with continued improvement of lipase level and clinical picture. Patient is started on a liquid diet first, and patient tolerated oral intake well. Then diet was advanced. On 07/17/2017 patient has almost complete resolution of the nausea, vomiting, and abdominal pain, and patient continues to have improvement of the pancreatic enzymes, and patient deemed stable for discharge with recommendation to continue to advance the diet as tolerated. Patient is recommended to followup with primary care provider in 1-2 weeks. VITAL SIGNS: On the day of discharge, temperature 97.6, pulse 71, respirations 16, blood pressure 135/90, pulse oximetry 97% in room air. LABORATORY DATA: WBC is 11.5, hemoglobin 14.7, hematocrit 44.3, platelet count is 340. Sodium is 139, potassium 3.6, chloride 105, carbon dioxide 26, BUN 8, creatinine 0.69, GFR greater than 60, fasting glucose is 90, calcium 9.1, magnesium 2.1, lipase is 499. IMAGING STUDY: Gallbladder ultrasound shows hepatic steatosis. Distended gallbladder with sludge and prominent common bile duct measuring 7 mm diameter. No sonographic Pressley signs. No gallbladder wall thickening. Common bile duct is upper limit of normal. DISCHARGE MEDICATIONS: - vitamin C 500 mg by mouth daily - budesonide 9 mg by mouth daily - vitamin D3 at 1000 units by mouth daily - Bacid one tablet by mouth daily - multivitamin one tablet by mouth daily - omeprazole 40 mg by mouth daily DISCHARGE INSTRUCTIONS: Discontinue line. Discharge home. Activity as tolerated. Advance diet as tolerated. Patient should followup with primary care provider in 1-2 weeks. Patient is recommended to followup with gastrointestinal (GI) specialist to follow the Crohn disease management. DISCHARGE CONDITION: Stable. DISCHARGE TIME: Greater than 30 minutes.
== END 2017-07-17 14:15 | disposition home or self-care (01) | DRG 282 ==
LOC: M ED 05:36 → M ED INP 10:18 → M MS5PR 12:00
PROVIDERS: ADMIT Internal Medicine; ATTEND Internal Medicine
DX: K85.90 Acute pancreatitis without necrosis or infection, unspecified (principal); K50.90 Crohn's disease, unspecified, without complications; K21.9 Gastro-esophageal reflux disease without esophagitis; Z79.899 Other long term (current) drug therapy; Z87.891 Personal history of nicotine dependence

== ENCOUNTER → 2017-09-16 | Outpatient (REF) | payer OTHER | LOC: M LAB REF 11:11 | DX: K50.012 Crohn's disease of small intestine with intestinal obstruction (principal) ==

== ENCOUNTER → 2017-10-22 | Outpatient (CLI) | payer BC, OTHER ==
[2017-10-22 16:59] LABS: BASO # 0.1 10^3/uL (0.0-0.2); BASO % 0.7 % (0.0-1.0); HEMATOCRIT 43.5 % (42.0-52.0); HEMOGLOBIN 14.4 g/dl (14.0-18.0); IMMATURE GRANULOCYTE % 0.4 % (0-3.0); LYMPH # 3.4 10^3/uL (1.5-4.5); LYMPH % 36.1 % (24.0-44.0); MEAN CORPUSCULAR HEMOGLOBIN 28.2 pg (27.0-33.0); MEAN CORPUSCULAR HGB CONC 33.1 g/dl (32.0-36.5); MEAN CORPUSCULAR VOLUME 85.3 fl (80.0-96.0); MONO # 0.6 10^3/uL (0.0-0.8); MONO % 6.4 % (0.0-5.0); NEUTROPHILS # 5.4 10^3/uL (1.8-7.7); NEUTROPHILS % 56.4 % (36.0-66.0); PLATELET COUNT, AUTOMATED 261 10^3/uL (150-450); RED CELL DISTRIBUTION WIDTH 13.1 % (11.5-14.5); WHITE BLOOD COUNT 9.5 10^3/uL (4.0-10.0)
[2017-10-22 17:36] LABS: ALBUMIN 3.6 GM/DL (3.2-5.2); ALBUMIN/GLOBULIN RATIO 1.24 (1.00-1.93); ALKALINE PHOSPHATASE 92 U/L (45-117); ALT/SGPT 61 U/L (12-78); ANION GAP 8 MEQ/L (8-16); AST/SGOT 17 U/L (7-37); BILIRUBIN,TOTAL 0.2 MG/DL (0.2-1.0); BLOOD UREA NITROGEN 11 MG/DL (7-18); C REACTIVE PROTEIN QUANTITATIV 1.37 MG/DL (0.00-0.30); CALCIUM LEVEL 8.6 MG/DL (8.5-10.1); CARBON DIOXIDE LEVEL 26 MEQ/L (21-32); CHLORIDE LEVEL 106 MEQ/L (98-107); GLOMERULAR FILTRATION RATE > 60.0 (>60); GLUCOSE, FASTING 100 MG/DL (70-100); LIPASE 118 U/L (73-393); POTASSIUM SERUM 4.4 MEQ/L (3.5-5.1); SODIUM LEVEL 140 MEQ/L (136-145); TOTAL PROTEIN 6.5 GM/DL (6.4-8.2)
== END ==
LOC: M LRY 11:52
DX: K50.012 Crohn's disease of small intestine with intestinal obstruction (principal)
CPT/HCPCS: 83690

== ENCOUNTER → 2018-03-04 | Outpatient (CLI) | payer BC, OTHER | LOC: M SLEEP 19:25 | DX: G47.33 Obstructive sleep apnea (adult) (pediatric) (principal); R40.0 Somnolence | CPT/HCPCS: 95810 ==

== ENCOUNTER → 2018-05-15 | Outpatient (CLI) | payer BC, OTHER | LOC: M SLEEP 20:00 | DX: G47.33 Obstructive sleep apnea (adult) (pediatric) (principal) | CPT/HCPCS: 95811 ==

== ENCOUNTER → 2018-06-16 | Outpatient (CLI) | payer BC, OTHER | LOC: M LRY 12:36 | DX: M79.674 Pain in right toe(s) (principal) | CPT/HCPCS: 73660 ==

== ENCOUNTER → 2018-06-27 | Outpatient (REF) | payer OTHER ==
[2018-07-01 00:07] LABS: QuantiFERON-TB Gold Plus Negative (Negative)
== END ==
LOC: M SFHCLERA 14:28
DX: Z11.1 Encounter for screening for respiratory tuberculosis (principal)

== ENCOUNTER → 2018-08-11 | Outpatient (CLI) | payer OTHER ==
[~2018-08-11] MED LIST changes: +POTA99TA PO; +VITA1CAP2 PO; +ZOFR4TAB14 PO; -ZOFR4TAB3 PO
== END ==
LOC: M LRY 09:23
PROVIDERS: ATTEND Internal Medicine Gastroenterology
DX: K50.012 Crohn's disease of small intestine with intestinal obstruction (principal)

== ENCOUNTER 2018-09-28 09:12 | Outpatient (CLI) | payer BC, OTHER ==
[~2018-09-28] VITALS: Ht 177.8 cm; Wt 136.0 kg
[2018-09-28 09:57] VITALS: BP 150/82
[2018-09-28] MEDS ORDERED: USTEKINUMAB 520 MG in NS 146 ML IV ONE (10:00)
[2018-09-28] MEDS ORDERED: 0.22 MICRON FILTER (METHACHOLINE/OCREVUS) XX ONE (10:15)
[2018-09-28 10:40] VITALS: BP 123/70
[2018-09-28] MEDS ORDERED: VARE1TA PO (11:32)
[2018-09-28] MEDS ORDERED: IBUP-1114 PO (11:33)
[2018-09-28] MEDS ORDERED: STEL130I IV (11:35)
[2018-09-28 11:51] VITALS: BP 126/72
[2018-09-28 12:15] VITALS: BP 137/69
[2018-09-28 12:35] VITALS: BP 131/66
== END 2018-09-28 12:35 | disposition home or self-care (01) ==
LOC: M INFU 09:12
PROVIDERS: ATTEND Internal Medicine Gastroenterology
DX: K50.90 Crohn's disease, unspecified, without complications (principal); Z88.8 Allergy status to other drugs, medicaments and biological substances
CPT/HCPCS: 96365; 96366; J3358

== ENCOUNTER → 2019-08-07 | Outpatient (REF) | payer OTHER ==
[~2019-08-07] MED LIST changes: +IBUP-1114 PO; -OMEP40CA2 PO; +OMEP40CA97 PO; +STEL130I IV; +VARE1TA PO; +VITA-183 PO; -VITA1CAP2 PO
== END ==
LOC: M SFHCLERA 09:05
PROVIDERS: ATTEND Family Medicine
DX: Z11.1 Encounter for screening for respiratory tuberculosis (principal)

== ENCOUNTER → 2019-08-09 | Outpatient (CLI) | payer BC, OTHER ==
[2019-08-11 11:33] LABS: HEPATITIS B SURFACE ANTIBODY POSITIVE (POSITIVE); HEPATITIS B SURFACE ANTIGEN NEGATIVE (NEGATIVE)
== END ==
LOC: M LAB 15:46
PROVIDERS: ATTEND Internal Medicine Gastroenterology
DX: K50.00 Crohn's disease of small intestine without complications (principal)

== ENCOUNTER → 2020-08-07 | Outpatient (CLI) | payer BC, OTHER | LOC: M LAB 15:05 | PROVIDERS: ATTEND Family Medicine | DX: Z11.1 Encounter for screening for respiratory tuberculosis (principal) ==

== ENCOUNTER 2021-04-15 13:27 | Outpatient (CLI) | payer BC, OTHER ==
[~2021-04-15] VITALS: Ht 177.8 cm; Wt 120.0 kg
[~2021-04-15 13:27] MED LIST changes: +OMEP40CA4 PO; -OMEP40CA97 PO
[2021-04-15] MEDS ORDERED: VEDOLIZUMAB 300 MG in NS 250 ML IV ONE (14:00)
[2021-04-15 14:25] VITALS: BP 131/80
[2021-04-15 15:04] VITALS: BP 131/80
[2021-04-15 16:15] VITALS: BP 127/72
== END 2021-04-15 16:40 | disposition home or self-care (01) ==
LOC: M INFU 13:27
PROVIDERS: ATTEND Internal Medicine Gastroenterology
DX: K50.90 Crohn's disease, unspecified, without complications (principal); Z88.8 Allergy status to other drugs, medicaments and biological substances
CPT/HCPCS: 96365; J3380

== ENCOUNTER → 2021-04-21 | Outpatient (CLI) | payer BC, OTHER ==
--- NOTE | 2021-04-21 20:11 | REP ---
INDICATION: K85.10 PANCREATITIS/ MRCP. COMPARISON: None. TECHNIQUE: Multiple heavily T2 weighted sequences are obtained in the axial and coronal planes. 3D MIP reconstruction images are performed. FINDINGS: There is no intrahepatic biliary dilatation. The common bile duct is mildly dilated distally, the maximum diameter is 9 mm. There is no gross biliary stricture. There is no evidence of choledocholithiasis. The pancreatic duct mildly dilated in the region of the pancreatic head and body, 4-5 mm in maximum diameter. There is no internal filling defect.. Gallbladder is mildly distended with no wall thickening or edema. No internal filling defect or gallstone is seen. The visualized portions of the liver, spleen, adrenals, pancreas and kidneys are grossly unremarkable. I see no adenopathy or free fluid in the abdomen. IMPRESSION: Mildly dilated common bile duct and pancreatic duct. No evidence of cholelithiasis or choledocholithiasis. <Electronically signed by Ken Bermudez > 04/21/[id number]
== END ==
LOC: M RAD 17:27
PROVIDERS: ATTEND Internal Medicine Gastroenterology
DX: K85.10 Biliary acute pancreatitis without necrosis or infection (principal)

== ENCOUNTER 2021-04-29 13:43 | Outpatient (CLI) | payer BC, OTHER ==
[~2021-04-29] VITALS: Ht 177.8 cm; Wt 120.0 kg
[2021-04-29] MEDS ORDERED: VEDOLIZUMAB 300 MG in NS 250 ML IV ONE (14:00)
[2021-04-29 14:28] VITALS: BP_SYST 135
[2021-04-29 15:36] VITALS: BP 142/77
== END 2021-04-29 15:35 | disposition home or self-care (01) ==
LOC: M INFU 13:43
PROVIDERS: ATTEND Internal Medicine Gastroenterology
DX: K50.90 Crohn's disease, unspecified, without complications (principal); Z88.8 Allergy status to other drugs, medicaments and biological substances
CPT/HCPCS: 96365; J3380

== ENCOUNTER 2021-05-27 14:03 | Outpatient (CLI) | payer BC, OTHER ==
[~2021-05-27 14:03] MED LIST changes: +VEDOLIZUMAB 300 MG in NS 250 ML IV ONE
[2021-05-27 14:15] VITALS: BP 125/66
[2021-05-27 15:30] VITALS: BP 123/57
== END 2021-05-27 15:40 | disposition home or self-care (01) ==
LOC: M INFU 14:03
PROVIDERS: ATTEND Internal Medicine Gastroenterology
DX: K50.90 Crohn's disease, unspecified, without complications (principal); Z88.8 Allergy status to other drugs, medicaments and biological substances
CPT/HCPCS: 96365; J3380

== ENCOUNTER 2021-07-22 14:00 | Outpatient (CLI) | payer BC, OTHER ==
[~2021-07-22] VITALS: Ht 177.8 cm; Wt 125.0 kg
[2021-07-22 14:19] VITALS: BP 145/85
[2021-07-22] MEDS ORDERED: COLA100C5 PO (14:36)
== END 2021-07-22 15:15 | disposition home or self-care (01) ==
LOC: M INFU 14:00
PROVIDERS: ATTEND Internal Medicine Gastroenterology
DX: K50.90 Crohn's disease, unspecified, without complications (principal); Z88.8 Allergy status to other drugs, medicaments and biological substances
CPT/HCPCS: 96365; J3380

== ENCOUNTER → 2021-08-01 | Outpatient (CLI) | payer BC, OTHER ==
[~2021-08-01] MED LIST changes: +COLA100C5 PO; -VEDOLIZUMAB 300 MG in NS 250 ML IV ONE
[2021-08-01 15:47] LABS: BASO # 0.1 10^3/uL (0.0-0.2); BASO % 0.6 % (0.0-1.0); EOS % 0.1 % (0.0-3.0); HEMATOCRIT 45.8 % (42.0-52.0); HEMOGLOBIN 15.2 g/dl (13.5-17.5); LYMPH # 3.6 10^3/uL (1.5-5.0); LYMPH % 33.8 % (24.0-44.0); MEAN CORPUSCULAR HEMOGLOBIN 28.4 pg (27.0-33.0); MEAN CORPUSCULAR HGB CONC 33.2 g/dl (32.0-36.5); MEAN CORPUSCULAR VOLUME 85.4 fl (80.0-96.0); MONO # 0.9 10^3/uL (0.0-0.8); MONO % 8.5 % (2.0-8.0); NEUTROPHILS # 6.1 10^3/uL (1.5-8.5); NEUTROPHILS % 56.7 % (36.0-66.0); PLATELET COUNT, AUTOMATED 265 10^3/uL (150-450); RED BLOOD COUNT 5.36 10^6/uL (4.30-6.10); WHITE BLOOD COUNT 10.8 10^3/uL (4.0-10.0)
[2021-08-01 16:14] LABS: ALBUMIN 4.1 GM/DL (3.2-5.2); ALT/SGPT 28 U/L (12-78); AMYLASE 42 U/L (25-115); BILIRUBIN,TOTAL 0.4 MG/DL (0.2-1.0); BLOOD UREA NITROGEN 19 MG/DL (7-18); CALCIUM LEVEL 9.4 MG/DL (8.5-10.1); CARBON DIOXIDE LEVEL 26 MEQ/L (21-32); CHLORIDE LEVEL 105 MEQ/L (98-107); CREATININE FOR GFR 0.83 MG/DL (0.70-1.30); GLOMERULAR FILTRATION RATE > 60.0 (>60); GLUCOSE, FASTING 100 MG/DL (70-100); LIPASE 108 U/L (73-393); POTASSIUM SERUM 4.1 MEQ/L (3.5-5.1); SODIUM LEVEL 138 MEQ/L (136-145); TOTAL PROTEIN 6.9 GM/DL (6.4-8.2); TRIGLYCERIDES LEVEL 438 MG/DL (<150)
[2021-08-01 16:21] LABS: VITAMIN B12 LEVEL 603 PG/ML (247-911)
== END ==
LOC: M WUC 11:57
PROVIDERS: ATTEND Internal Medicine Gastroenterology
DX: K50.00 Crohn's disease of small intestine without complications (principal)

== ENCOUNTER → 2021-08-01 | Outpatient (CLI) | payer BC, OTHER ==
[2021-08-01 16:22] LABS: ALBUMIN 4.1 GM/DL (3.2-5.2); ALT/SGPT 28 U/L (12-78); BILIRUBIN,TOTAL 0.4 MG/DL (0.2-1.0); BLOOD UREA NITROGEN 18 MG/DL (7-18); CALCIUM LEVEL 9.7 MG/DL (8.5-10.1); CARBON DIOXIDE LEVEL 25 MEQ/L (21-32); CHLORIDE LEVEL 106 MEQ/L (98-107); CHOLESTEROL LEVEL 205 MG/DL (<200); CHOLESTEROL RISK RATIO 4.456 (<5); CREATININE FOR GFR 0.75 MG/DL (0.70-1.30); FREE T4 0.93 NG/DL (0.76-1.46); GLOMERULAR FILTRATION RATE > 60.0 (>60); GLUCOSE, FASTING 95 MG/DL (70-100); HDL CHOLESTEROL 46 MG/DL (>40); NON-HDL-C 159 MG/DL; POTASSIUM SERUM 4.1 MEQ/L (3.5-5.1); SODIUM LEVEL 138 MEQ/L (136-145); TESTOSTERONE 185 NG/DL (241-827); TOTAL PROTEIN 7.1 GM/DL (6.4-8.2); TRIGLYCERIDES LEVEL 451 MG/DL (<150)
== END ==
LOC: M WUC 12:02
PROVIDERS: ATTEND Student in an Organized Health Care Education/Training Program
DX: Z11.1 Encounter for screening for respiratory tuberculosis (principal); R53.83 Other fatigue; E66.9 Obesity, unspecified

== ENCOUNTER 2021-09-16 13:39 | Outpatient (CLI) | payer BC, OTHER ==
[~2021-09-16] VITALS: Ht 177.8 cm; Wt 125.0 kg
[2021-09-16] MEDS ORDERED: VEDOLIZUMAB 300 MG in NS 250 ML IV ONE (14:00)
[2021-09-16 14:27] VITALS: BP 143/82
[2021-09-16 15:30] VITALS: BP 128/78
== END 2021-09-16 15:30 | disposition home or self-care (01) ==
LOC: M INFU 13:39
PROVIDERS: ATTEND Internal Medicine Gastroenterology
DX: K50.90 Crohn's disease, unspecified, without complications (principal); Z88.8 Allergy status to other drugs, medicaments and biological substances
CPT/HCPCS: 96365; J3380

== ENCOUNTER → 2021-09-20 | Outpatient (CLI) | payer BC, OTHER | LOC: M LAB 09:03 | PROVIDERS: ATTEND Urology | DX: R79.89 Other specified abnormal findings of blood chemistry (principal) | CPT/HCPCS: 36415; 82672; 83001; 83002; 84146; 84270; 84402; 84403; G0103 ==

== ENCOUNTER → 2021-10-27 | Outpatient (CLI) | payer BC, OTHER ==
[~2021-10-27] MED LIST changes: +ENTY1INJ IV; +PRAV40TA2 PO; +TEST200I14 IM
== END ==
LOC: M LABSMTC 10:08
PROVIDERS: ATTEND Anesthesiology
DX: Z01.812 Encounter for preprocedural laboratory examination (principal); Z20.822 Contact with and (suspected) exposure to COVID-19

== ENCOUNTER 2021-10-31 11:42 | Day surgery (SDC) | payer BC, OTHER ==
[~2021-10-31] VITALS: Ht 177.8 cm; Wt 134.2 kg
[~2021-10-31 11:42] MED LIST changes: +NS 1,000 ML IV ONE; +propofoL 500 MG/50 ML VIAL As Ordered ONE
[2021-10-31] MEDS ORDERED: LIDOCAINE 2% 100MG/5ML SDV (FOR ANES.) As Ordered ONE (13:19)
[2021-10-31] MEDS ORDERED: propofoL 200 MG/20 ML VIAL As Ordered ONE (13:19)
[2021-10-31] MEDS ORDERED: fentaNYL 100 MCG/2 ML INJECTION As Ordered ONE (13:20)
[2021-10-31 14:20] VITALS: BP 105/51
== END 2021-10-31 14:25 | disposition home or self-care (01) ==
LOC: M OPP 11:42
PROVIDERS: ATTEND Internal Medicine Gastroenterology
DX: K50.012 Crohn's disease of small intestine with intestinal obstruction (principal); K31.89 Other diseases of stomach and duodenum; K31.5 Obstruction of duodenum; R12 Heartburn; G47.33 Obstructive sleep apnea (adult) (pediatric); Z79.899 Other long term (current) drug therapy; Z88.8 Allergy status to other drugs, medicaments and biological substances
CPT/HCPCS: 43235; 45378; J3010

== ENCOUNTER 2021-11-10 14:34 | Outpatient (CLI) | payer BC, OTHER ==
[~2021-11-10] VITALS: Ht 177.8 cm; Wt 128.3 kg
[~2021-11-10 14:34] MED LIST changes: -NS 1,000 ML IV ONE; +VEDOLIZUMAB 300 MG in NS 250 ML IV ONE; -propofoL 500 MG/50 ML VIAL As Ordered ONE
[2021-11-10 14:48] VITALS: BP 140/84
[2021-11-10 15:45] VITALS: BP 132/80
== END 2021-11-10 15:45 | disposition home or self-care (01) ==
LOC: M INFU 14:34
PROVIDERS: ATTEND Internal Medicine Gastroenterology
DX: K50.90 Crohn's disease, unspecified, without complications (principal); Z88.8 Allergy status to other drugs, medicaments and biological substances
CPT/HCPCS: 96365; J3380

== ENCOUNTER 2022-01-12 14:13 | Outpatient (CLI) | payer BC, OTHER ==
[~2022-01-12] VITALS: Ht 177.8 cm; Wt 128.3 kg
[~2022-01-12 14:13] MED LIST changes: -AZAT50TA2 PO; +AZAT50TA37 PO
[2022-01-12 14:41] VITALS: BP 137/72
[2022-01-12 15:33] VITALS: BP 136/78
== END 2022-01-12 15:35 | disposition home or self-care (01) ==
LOC: M INFU 14:13
PROVIDERS: ATTEND Internal Medicine Gastroenterology
DX: K50.90 Crohn's disease, unspecified, without complications (principal); Z88.8 Allergy status to other drugs, medicaments and biological substances
CPT/HCPCS: 96365; J3380

== ENCOUNTER → 2022-01-23 | Outpatient (CLI) | payer BC, OTHER ==
[~2022-01-23] MED LIST changes: -VEDOLIZUMAB 300 MG in NS 250 ML IV ONE
[2022-01-24 20:08] LABS: TESTOSTERONE FREE (DIRECT) 19.5 pg/mL (8.7-25.1)
== END ==
LOC: M WUC 08:50
PROVIDERS: ATTEND Urology
DX: R79.89 Other specified abnormal findings of blood chemistry (principal)

== ENCOUNTER 2022-04-28 13:05 | Outpatient (CLI) | payer BC, OTHER ==
[~2022-04-28] VITALS: Ht 177.8 cm; Wt 128.3 kg
[2022-04-28 13:50] VITALS: BP 146/82
[2022-04-28] MEDS ORDERED: VEDOLIZUMAB 300 MG in NS 250 ML IV ONE (14:00)
[2022-04-28 15:23] VITALS: BP 144/91
== END 2022-04-28 15:25 | disposition home or self-care (01) ==
LOC: M INFU 13:05
PROVIDERS: ATTEND Internal Medicine Gastroenterology
DX: K50.90 Crohn's disease, unspecified, without complications (principal); Z88.8 Allergy status to other drugs, medicaments and biological substances
CPT/HCPCS: 96365; J3380

== ENCOUNTER → 2022-04-29 | Outpatient (CLI) | payer BC, OTHER ==
[2022-04-29 12:55] LABS: HEMATOCRIT 51.2 % (42.0-52.0); HEMOGLOBIN 16.6 g/dl (13.5-17.5); MEAN CORPUSCULAR HEMOGLOBIN 28.2 pg (27.0-33.0); MEAN CORPUSCULAR HGB CONC 32.4 g/dl (32.0-36.5); MEAN CORPUSCULAR VOLUME 87.1 fl (80.0-96.0); PLATELET COUNT, AUTOMATED 263 10^3/uL (150-450); RED BLOOD COUNT 5.88 10^6/uL (4.30-6.10); WHITE BLOOD COUNT 9.2 10^3/uL (4.0-10.0)
[2022-04-29 13:50] LABS: ALBUMIN 4.3 GM/DL (3.2-5.2); ALT/SGPT 47 U/L (12-78); BILIRUBIN,TOTAL 0.7 MG/DL (0.2-1.0); BLOOD UREA NITROGEN 9 MG/DL (7-18); CALCIUM LEVEL 9.7 MG/DL (8.5-10.1); CARBON DIOXIDE LEVEL 28 MEQ/L (21-32); CHLORIDE LEVEL 103 MEQ/L (98-107); CREATININE FOR GFR 0.94 MG/DL (0.70-1.30); GLOMERULAR FILTRATION RATE > 60.0 (>60); GLUCOSE, FASTING 101 MG/DL (70-100); POTASSIUM SERUM 4.2 MEQ/L (3.5-5.1); SODIUM LEVEL 135 MEQ/L (136-145); TOTAL PROTEIN 7.1 GM/DL (6.4-8.2)
[2022-05-01 23:07] LABS: PSA TOTAL 0.6 ng/mL (0.0-4.0); TESTOSTERONE FREE (DIRECT) 23.2 pg/mL (8.7-25.1)
== END ==
LOC: M WUC 08:55
PROVIDERS: ATTEND Urology
DX: R79.89 Other specified abnormal findings of blood chemistry (principal)

== ENCOUNTER 2022-06-23 14:50 | Outpatient (CLI) | payer BC, OTHER ==
[~2022-06-23] VITALS: Ht 177.8 cm; Wt 128.3 kg
[2022-06-23 14:50] VITALS: BP 131/72
[2022-06-23] MEDS ORDERED: VEDOLIZUMAB 300 MG in NS 250 ML IV ONE (15:00)
[2022-06-23 16:05] VITALS: BP 135/76
== END 2022-06-23 16:50 | disposition home or self-care (01) ==
LOC: M INFU 14:50
PROVIDERS: ATTEND Internal Medicine Gastroenterology
DX: K50.90 Crohn's disease, unspecified, without complications (principal); Z88.8 Allergy status to other drugs, medicaments and biological substances
CPT/HCPCS: 96365; J3380

== ENCOUNTER 2022-08-18 13:24 | Outpatient (CLI) | payer BC, OTHER ==
[~2022-08-18] VITALS: Ht 177.8 cm; Wt 128.3 kg
[2022-08-18 13:30] VITALS: BP 133/72
[2022-08-18] MEDS ORDERED: VEDOLIZUMAB 300 MG in NS 250 ML IV ONE (14:30)
[2022-08-18 14:50] VITALS: BP 150/83
== END 2022-08-18 14:50 ==
LOC: M INFU 13:24
PROVIDERS: ATTEND Internal Medicine Gastroenterology
DX: K50.90 Crohn's disease, unspecified, without complications (principal); Z88.8 Allergy status to other drugs, medicaments and biological substances
CPT/HCPCS: 96365; J3380

== ENCOUNTER → 2022-08-22 | Outpatient (CLI) | payer BC, OTHER ==
[2022-08-25 20:07] LABS: TESTOSTERONE FREE (DIRECT) 29.7 pg/mL (8.7-25.1)
== END ==
LOC: M LAB 09:01
PROVIDERS: ATTEND Urology
DX: R79.89 Other specified abnormal findings of blood chemistry (principal)

== ENCOUNTER → 2022-08-22 | Outpatient (CLI) | payer BC, OTHER | LOC: M LAB 08:59 | PROVIDERS: ATTEND Internal Medicine Gastroenterology | DX: K50.00 Crohn's disease of small intestine without complications (principal) ==

== ENCOUNTER → 2022-10-09 | Outpatient (CLI) | payer BC, OTHER ==
[~2022-10-09] VITALS: Ht 177.8 cm; Wt 128.3 kg
[~2022-10-09] MED LIST changes: +VEDOLIZUMAB 300 MG in NS 250 ML IV ONE
[2022-10-09 15:05] VITALS: BP 124/67
== END ==
LOC: M INFU 15:00
PROVIDERS: ATTEND Internal Medicine Gastroenterology
DX: K50.90 Crohn's disease, unspecified, without complications (principal); Z88.8 Allergy status to other drugs, medicaments and biological substances
CPT/HCPCS: 96365; J3380

== ENCOUNTER → 2022-11-10 | Outpatient (CLI) | payer BC, OTHER ==
[~2022-11-10] MED LIST changes: -VEDOLIZUMAB 300 MG in NS 250 ML IV ONE
[2022-11-10 12:25] LABS: HEMATOCRIT 48.1 % (42.0-52.0); HEMOGLOBIN 15.3 g/dl (13.5-17.5); MEAN CORPUSCULAR HEMOGLOBIN 27.9 pg (27.0-33.0); MEAN CORPUSCULAR HGB CONC 31.8 g/dl (32.0-36.5); MEAN CORPUSCULAR VOLUME 87.8 fl (80.0-96.0); PLATELET COUNT, AUTOMATED 271 10^3/uL (150-450); RED BLOOD COUNT 5.48 10^6/uL (4.30-6.10); WHITE BLOOD COUNT 11.8 10^3/uL (4.0-10.0)
[2022-11-11 23:07] LABS: PSA TOTAL 0.6 ng/mL (0.0-4.0); TESTOSTERONE FREE (DIRECT) 17.9 pg/mL (6.8-21.5)
== END ==
LOC: M WUC 09:05
PROVIDERS: ATTEND Urology
DX: R79.89 Other specified abnormal findings of blood chemistry (principal)

== ENCOUNTER 2022-12-10 14:10 | Outpatient (CLI) | payer BC, OTHER ==
[~2022-12-10] VITALS: Ht 177.8 cm; Wt 128.0 kg
[2022-12-10] MEDS ORDERED: VEDOLIZUMAB 300 MG in NS 250 ML IV ONE (14:30)
[2022-12-10 14:36] VITALS: BP 125/68
[2022-12-10 16:07] VITALS: BP 129/81
== END 2022-12-10 16:05 ==
LOC: M INFU 14:10
PROVIDERS: ATTEND Internal Medicine Gastroenterology
DX: K50.90 Crohn's disease, unspecified, without complications (principal); Z88.8 Allergy status to other drugs, medicaments and biological substances
CPT/HCPCS: 96365; J3380

== ENCOUNTER 2023-01-22 12:27 | Inpatient (IN) | payer BC, OTHER ==
[~2023-01-22] VITALS: Ht 177.8 cm; Wt 113.9 kg
[~2023-01-22 12:27] MED LIST changes: +NICOTINE 14 MG/24 HR TRANSDERMAL TD SCH; +PANTOPRAZOLE 40MG VIAL IV SCH
[2023-01-22 13:17] LABS: BASO # 0.1 10^3/uL (0.0-0.2); BASO % 0.5 % (0.0-1.0); HEMATOCRIT 47.9 % (42.0-52.0); HEMOGLOBIN 16.2 g/dl (13.5-17.5); LYMPH % 21.5 % (24.0-44.0); MEAN CORPUSCULAR HEMOGLOBIN 29.3 pg (27.0-33.0); MEAN CORPUSCULAR HGB CONC 33.8 g/dl (32.0-36.5); MEAN CORPUSCULAR VOLUME 86.6 fl (80.0-96.0); MONO # 1.1 10^3/uL (0.0-0.8); MONO % 7.8 % (2.0-8.0); NEUTROPHILS # 9.7 10^3/uL (1.5-8.5); NEUTROPHILS % 69.8 % (36.0-66.0); PLATELET COUNT, AUTOMATED 266 10^3/uL (150-450); RED BLOOD COUNT 5.53 10^6/uL (4.30-6.10); WHITE BLOOD COUNT 13.9 10^3/uL (4.0-10.0)
[2023-01-22 13:41] LABS: ALBUMIN 4.6 G/DL (3.2-5.2); ALKALINE PHOSPHATASE 85 U/L (46-116); ALT/SGPT 19 U/L (7.0-40); AST/SGOT 10 U/L (<34); BILIRUBIN,DIRECT 0.2 MG/DL (<0.4); BILIRUBIN,TOTAL 0.6 MG/DL (0.3-1.2); TOTAL PROTEIN 7.2 G/DL (5.7-8.2)
[2023-01-22] MEDS ORDERED: ONDANSETRON 4MG 2ML VIAL IV ONE (14:05)
[2023-01-22] MEDS ORDERED: NS 1,000 ML IV ONE (14:05)
[2023-01-22] MEDS ORDERED: MORPHINE 2 MG/ML 1ML VIAL IV ONE (14:05)
[2023-01-22 14:14] LABS: LIPASE > 3500 U/L (12-53)
[2023-01-22] MEDS ORDERED: ISOVUE-370 76% 100ML VIAL As Ordered ONE (14:32)
[2023-01-22] MEDS ORDERED: VITMTA PO (15:07)
[2023-01-22] MEDS ORDERED: ZINC50TA14 PO (15:07)
[2023-01-22] MEDS ORDERED: MAGN400T2 PO (15:07)
[2023-01-22] MEDS ORDERED: VITA100093 PO (15:07)
[2023-01-22] MEDS ORDERED: POTA99CA2 PO (15:07)
[2023-01-22] MEDS ORDERED: HOME MED LIST COMPLETE! XX SCH (15:10)
[2023-01-22] MEDS ORDERED: MORPHINE 2 MG/ML 1ML VIAL IV PRN ×4 (16:10→18:00)
[2023-01-22] MEDS ORDERED: ACETAMINOPHEN TAB 650MG DOSE (2X325MG) PO PRN (16:10)
[2023-01-22] MEDS ORDERED: ONDANSETRON 4MG 2ML VIAL IV PRN (16:10)
[2023-01-22] MEDS ORDERED: NS 1,000 ML IV SCH (16:10)
[2023-01-22 16:47] LABS: RSV AMPLIFICATION NEGATIVE (NEGATIVE)
[2023-01-22 16:48] VITALS: BP 136/80
[2023-01-22 17:52] LABS: INR 0.96; PARTIAL THROMBOPLASTIN TIME 27.8 SECONDS (24.8-34.2)
[2023-01-23] MEDS ORDERED: ENOXAPARIN 40MG/0.4ML SYRINGE (J1650 PER 10MG) SC SCH (09:00)
== END 2023-01-22 18:40 | disposition left against medical advice (07) | DRG 282 ==
LOC: M ED 12:27 → M ED INP 16:10 → ENRESERV 17:01
PROVIDERS: ADMIT Internal Medicine; ATTEND Internal Medicine
DX: K85.90 Acute pancreatitis without necrosis or infection, unspecified (principal); K50.90 Crohn's disease, unspecified, without complications; K21.9 Gastro-esophageal reflux disease without esophagitis; F17.290 Nicotine dependence, other tobacco product, uncomplicated; E29.1 Testicular hypofunction; Z79.899 Other long term (current) drug therapy; Z88.8 Allergy status to other drugs, medicaments and biological substances

== ENCOUNTER → 2023-02-02 | Outpatient (CLI) | payer BC, OTHER ==
[~2023-02-02] VITALS: Ht 177.8 cm; Wt 122.9 kg
[~2023-02-02] MED LIST changes: +MAGN400T2 PO; -NICOTINE 14 MG/24 HR TRANSDERMAL TD SCH; -PANTOPRAZOLE 40MG VIAL IV SCH; +POTA99CA2 PO; +VEDOLIZUMAB 300 MG in NS 250 ML IV ONE; +VITA100093 PO; +VITMTA PO; +ZINC50TA14 PO
[2023-02-02 15:09] VITALS: BP 125/66; O2SAT 100
[2023-02-02 15:45] VITALS: BP 113/64; O2SAT 97
== END ==
LOC: M INFU 14:58
PROVIDERS: ATTEND Internal Medicine Gastroenterology
DX: K50.90 Crohn's disease, unspecified, without complications (principal); Z88.8 Allergy status to other drugs, medicaments and biological substances
CPT/HCPCS: 96365; J3380

== ENCOUNTER → 2023-03-01 | Outpatient (CLI) | payer BC, OTHER ==
[~2023-03-01] MED LIST changes: -VEDOLIZUMAB 300 MG in NS 250 ML IV ONE
[2023-03-01 13:53] LABS: ALKALINE PHOSPHATASE 79 U/L (46-116); ALT/SGPT 12 U/L (7.0-40); AST/SGOT < 8 U/L (<34); BILIRUBIN,TOTAL 0.4 MG/DL (0.3-1.2); BLOOD UREA NITROGEN 13 MG/DL (9-23); CALCIUM LEVEL 9.1 MG/DL (8.5-10.1); CARBON DIOXIDE LEVEL 29 MMOL/L (20-31); CHLORIDE LEVEL 105 MMOL/L (98-107); CHOLESTEROL LEVEL 146 MG/DL (<200); CHOLESTEROL RISK RATIO 3.59 (<5); CREATININE FOR GFR 0.78 MG/DL (0.70-1.30); GLOMERULAR FILTRATION RATE > 60.0 (>60); GLUCOSE, FASTING 95 MG/DL (60-100); HDL CHOLESTEROL 40.6 MG/DL (>40); LDL CHOLESTEROL 83.2 MG/DL (<100); NON-HDL-C 105.4 MG/DL; POTASSIUM SERUM 4.8 MMOL/L (3.5-5.1); SODIUM LEVEL 139 MMOL/L (136-145); TOTAL PROTEIN 6.5 G/DL (5.7-8.2); TRIGLYCERIDES LEVEL 111 MG/DL (<150)
== END ==
LOC: M WUC 09:23
PROVIDERS: ATTEND Student in an Organized Health Care Education/Training Program
DX: E66.9 Obesity, unspecified (principal)

== ENCOUNTER → 2023-03-01 | Outpatient (CLI) | payer BC, OTHER | LOC: M CARPUL 11:05 | PROVIDERS: ATTEND Student in an Organized Health Care Education/Training Program | DX: R07.9 Chest pain, unspecified (principal) ==

== ENCOUNTER → 2023-03-01 | Outpatient (CLI) | payer BC, OTHER ==
[2023-03-02 16:10] LABS: TESTOSTERONE FREE (DIRECT) 21.2 pg/mL (6.8-21.5)
== END ==
LOC: M WUC 09:26
PROVIDERS: ATTEND Urology
DX: R79.89 Other specified abnormal findings of blood chemistry (principal)

== ENCOUNTER 2023-03-30 14:20 | Outpatient (CLI) | payer BC, OTHER ==
[~2023-03-30] VITALS: Ht 177.8 cm; Wt 110.5 kg
[2023-03-30 14:33] VITALS: BP 128/75; O2SAT 97
[2023-03-30] MEDS ORDERED: VEDOLIZUMAB 300 MG in NS 250 ML IV ONE (14:45)
[2023-03-30 15:26] VITALS: BP 139/88; O2SAT 99
== END 2023-03-30 15:30 | disposition home or self-care (01) ==
LOC: M INFU 14:20
PROVIDERS: ATTEND Internal Medicine Gastroenterology
DX: K50.90 Crohn's disease, unspecified, without complications (principal); Z88.8 Allergy status to other drugs, medicaments and biological substances
CPT/HCPCS: 96365; J3380

== ENCOUNTER 2023-05-25 14:45 | Outpatient (CLI) | payer BC, OTHER ==
[~2023-05-25 14:45] MED LIST changes: +VEDOLIZUMAB 300 MG in NS 250 ML IV ONE
[2023-05-25 14:49] VITALS: BP 139/78; O2SAT 97
[2023-05-25 16:00] VITALS: BP 135/92; O2SAT 98
== END 2023-05-25 16:00 | disposition home or self-care (01) ==
LOC: M INFU 14:45
PROVIDERS: ATTEND Internal Medicine Gastroenterology
DX: K50.90 Crohn's disease, unspecified, without complications (principal); Z88.8 Allergy status to other drugs, medicaments and biological substances
CPT/HCPCS: 96365; J3380

== ENCOUNTER → 2023-06-09 | Outpatient (CLI) | payer BC, OTHER ==
[~2023-06-09] MED LIST changes: -VEDOLIZUMAB 300 MG in NS 250 ML IV ONE
[2023-06-09 10:08] LABS: HEMATOCRIT 46.1 % (42.0-52.0); HEMOGLOBIN 15.4 g/dl (13.5-17.5); MEAN CORPUSCULAR HEMOGLOBIN 28.9 pg (27.0-33.0); MEAN CORPUSCULAR HGB CONC 33.4 g/dl (32.0-36.5); MEAN CORPUSCULAR VOLUME 86.5 fl (80.0-96.0); PLATELET COUNT, AUTOMATED 247 10^3/uL (150-450); RED BLOOD COUNT 5.33 10^6/uL (4.30-6.10); WHITE BLOOD COUNT 7.4 10^3/uL (4.0-10.0)
[2023-06-09 10:41] LABS: ALBUMIN 4.1 G/DL (3.2-5.2); ALKALINE PHOSPHATASE 76 U/L (46-116); ALT/SGPT 14 U/L (7.0-40); AST/SGOT 11 U/L (<34); BILIRUBIN,TOTAL 0.5 MG/DL (0.3-1.2); BLOOD UREA NITROGEN 11 MG/DL (9-23); CALCIUM LEVEL 9.5 MG/DL (8.5-10.1); CARBON DIOXIDE LEVEL 29 MMOL/L (20-31); CHLORIDE LEVEL 101 MMOL/L (98-107); CREATININE FOR GFR 0.72 MG/DL (0.70-1.30); GLOMERULAR FILTRATION RATE > 60.0 (>60); GLUCOSE, FASTING 95 MG/DL (60-100); POTASSIUM SERUM 4.8 MMOL/L (3.5-5.1); SODIUM LEVEL 138 MMOL/L (136-145); TOTAL PROTEIN 6.9 G/DL (5.7-8.2)
[2023-06-10 11:10] LABS: PSA TOTAL 0.7 ng/mL (0.0-4.0); TESTOSTERONE FREE (DIRECT) 27.6 pg/mL (6.8-21.5)
== END ==
LOC: M WUC 08:13
PROVIDERS: ATTEND Urology
DX: R79.89 Other specified abnormal findings of blood chemistry (principal)

== ENCOUNTER 2023-07-20 14:30 | Outpatient (CLI) | payer BC, OTHER ==
[2023-07-20 14:37] VITALS: BP 150/82; O2SAT 96
[2023-07-20] MEDS ORDERED: VEDOLIZUMAB 300 MG in NS 250 ML IV ONE (14:45)
[2023-07-20 15:40] VITALS: BP 130/74; O2SAT 100
== END 2023-07-20 15:42 ==
LOC: M INFU 14:30
PROVIDERS: ATTEND Internal Medicine Gastroenterology
DX: K50.90 Crohn's disease, unspecified, without complications (principal); Z88.8 Allergy status to other drugs, medicaments and biological substances
CPT/HCPCS: 96365; J3380

== ENCOUNTER → 2023-08-02 | Outpatient (CLI) | payer BC, OTHER ==
[2023-08-02 11:16] LABS: ALBUMIN 4.1 G/DL (3.2-5.2); ALKALINE PHOSPHATASE 70 U/L (46-116); ALT/SGPT 56 U/L (7.0-40); AST/SGOT 33 U/L (<34); BILIRUBIN,TOTAL 0.6 MG/DL (0.3-1.2); BLOOD UREA NITROGEN 12 MG/DL (9-23); CALCIUM LEVEL 9.3 MG/DL (8.5-10.1); CARBON DIOXIDE LEVEL 29 MMOL/L (20-31); CHLORIDE LEVEL 102 MMOL/L (98-107); CHOLESTEROL LEVEL 186 MG/DL (<200); CHOLESTEROL RISK RATIO 3.77 (<5); CREATININE FOR GFR 0.71 MG/DL (0.70-1.30); GLOMERULAR FILTRATION RATE > 60.0 (>60); GLUCOSE, FASTING 92 MG/DL (60-100); HDL CHOLESTEROL 49.3 MG/DL (>40); LDL CHOLESTEROL 115.7 MG/DL (<100); NON-HDL-C 136.7 MG/DL; SODIUM LEVEL 135 MMOL/L (136-145); TOTAL PROTEIN 6.8 G/DL (5.7-8.2); TRIGLYCERIDES LEVEL 105 MG/DL (<150)
== END ==
LOC: M WUC 08:29
PROVIDERS: ATTEND Family Medicine
DX: E78.1 Pure hyperglyceridemia (principal); Z11.1 Encounter for screening for respiratory tuberculosis

== ENCOUNTER 2023-09-14 13:46 | Outpatient (CLI) | payer BC, OTHER ==
[~2023-09-14] VITALS: Ht 177.8 cm; Wt 107.3 kg
[2023-09-14] MEDS ORDERED: VEDOLIZUMAB 300 MG in NS 250 ML IV ONE (14:30)
[2023-09-14 15:59] VITALS: BP 144/77; O2SAT 98
== END 2023-09-14 15:50 | disposition home or self-care (01) ==
LOC: M INFU 13:46
PROVIDERS: ATTEND Internal Medicine Gastroenterology
DX: K50.90 Crohn's disease, unspecified, without complications (principal); Z88.8 Allergy status to other drugs, medicaments and biological substances
CPT/HCPCS: 96365; J3380

== ENCOUNTER → 2023-09-29 | Outpatient (CLI) | payer BC, OTHER ==
[2023-09-29 10:54] LABS: HEMATOCRIT 50.6 % (42.0-52.0); HEMOGLOBIN 16.7 g/dl (13.5-17.5); MEAN CORPUSCULAR VOLUME 87.8 fl (80.0-96.0); PLATELET COUNT, AUTOMATED 248 10^3/uL (150-450); RED BLOOD COUNT 5.76 10^6/uL (4.30-6.10); WHITE BLOOD COUNT 9.8 10^3/uL (4.0-10.0)
[2023-09-29 11:18] LABS: ALBUMIN 4.4 G/DL (3.2-5.2); ALKALINE PHOSPHATASE 71 U/L (46-116); ALT/SGPT 26 U/L (7.0-40); AST/SGOT 14 U/L (<34); BILIRUBIN,TOTAL 0.6 MG/DL (0.3-1.2); BLOOD UREA NITROGEN 20 MG/DL (9-23); CALCIUM LEVEL 9.6 MG/DL (8.5-10.1); CARBON DIOXIDE LEVEL 30 MMOL/L (20-31); CHLORIDE LEVEL 102 MMOL/L (98-107); CREATININE FOR GFR 0.85 MG/DL (0.70-1.30); GLOMERULAR FILTRATION RATE > 60.0 (>60); GLUCOSE, FASTING 92 MG/DL (60-100); POTASSIUM SERUM 4.9 MMOL/L (3.5-5.1); SODIUM LEVEL 138 MMOL/L (136-145); TOTAL PROTEIN 7.4 G/DL (5.7-8.2)
[2023-09-30 16:09] LABS: TESTOSTERONE FREE (DIRECT) 32.2 pg/mL (6.8-21.5)
[2023-09-30 23:07] LABS: PSA TOTAL 0.7 ng/mL (0.0-4.0)
== END ==
LOC: M WUC 08:03
PROVIDERS: ATTEND Urology
DX: R79.89 Other specified abnormal findings of blood chemistry (principal)

== ENCOUNTER 2023-11-09 14:40 | Outpatient (CLI) | payer BC ==
[~2023-11-09] VITALS: Ht 177.8 cm; Wt 113.6 kg
[2023-11-09 14:45] VITALS: BP 129/68; O2SAT 97
[2023-11-09] MEDS: VEDOLIZUMAB 300 MG in NS 250 ML IV ONE (15:30)
[2023-11-09 16:10] VITALS: BP 131/68; O2SAT 97
== END 2023-11-09 16:10 | disposition home or self-care (01) ==
LOC: M INFU 14:40
PROVIDERS: ATTEND Internal Medicine Gastroenterology
DX: K50.90 Crohn's disease, unspecified, without complications (principal); Z88.8 Allergy status to other drugs, medicaments and biological substances
CPT/HCPCS: 96365; J3380

== ENCOUNTER → 2023-12-11 | Outpatient (CLI) | payer BC ==
[2023-12-11 09:32] LABS: HEMATOCRIT 47.7 % (42.0-52.0); HEMOGLOBIN 15.9 g/dl (13.5-17.5); MEAN CORPUSCULAR HGB CONC 33.3 g/dl (32.0-36.5); PLATELET COUNT, AUTOMATED 239 10^3/uL (150-450); RED BLOOD COUNT 5.48 10^6/uL (4.30-6.10); WHITE BLOOD COUNT 8.9 10^3/uL (4.0-10.0)
[2023-12-11 10:03] LABS: ALKALINE PHOSPHATASE 65 U/L (46-116); ALT/SGPT 20 U/L (7.0-40); AST/SGOT 12 U/L (<34); BILIRUBIN,TOTAL 0.6 MG/DL (0.3-1.2); BLOOD UREA NITROGEN 14 MG/DL (9-23); CALCIUM LEVEL 9.7 MG/DL (8.5-10.1); CARBON DIOXIDE LEVEL 31 MMOL/L (20-31); CHLORIDE LEVEL 102 MMOL/L (98-107); CREATININE FOR GFR 0.79 MG/DL (0.70-1.30); GLOMERULAR FILTRATION RATE > 60.0 (>60); GLUCOSE, FASTING 97 MG/DL (60-100); POTASSIUM SERUM 4.9 MMOL/L (3.5-5.1); SODIUM LEVEL 138 MMOL/L (136-145); TOTAL PROTEIN 6.8 G/DL (5.7-8.2)
[2023-12-13 18:11] LABS: PSA TOTAL 0.6 ng/mL (0.0-4.0); TESTOSTERONE FREE (DIRECT) 25.9 pg/mL (6.8-21.5)
== END ==
LOC: M LAB 08:46
PROVIDERS: ATTEND Urology
DX: R79.89 Other specified abnormal findings of blood chemistry (principal)

== ENCOUNTER 2024-01-04 14:25 | Outpatient (CLI) | payer BC ==
[2024-01-04 14:44] VITALS: BP 155/90; O2SAT 95
[2024-01-04] MEDS: VEDOLIZUMAB 300 MG in NS 250 ML IV ONE (14:54)
[2024-01-04 15:30] VITALS: BP 120/73; O2SAT 97
== END 2024-01-04 15:30 | disposition home or self-care (01) ==
LOC: M INFU 14:25
PROVIDERS: ATTEND Internal Medicine Gastroenterology
DX: K50.90 Crohn's disease, unspecified, without complications (principal); Z88.8 Allergy status to other drugs, medicaments and biological substances
CPT/HCPCS: 96365; J3380

== ENCOUNTER 2024-02-29 13:11 | Outpatient (CLI) | payer BC ==
[~2024-02-29] VITALS: Ht 177.8 cm; Wt 109.0 kg
[2024-02-29 13:10] VITALS: BP 141/81; O2SAT 97
[2024-02-29] MEDS: VEDOLIZUMAB 300 MG in NS 250 ML IV ONE (13:48)
[2024-02-29 14:25] VITALS: BP 135/80; O2SAT 100
== END 2024-02-29 14:30 ==
LOC: M INFU 13:11
PROVIDERS: ATTEND Internal Medicine Gastroenterology
DX: K50.90 Crohn's disease, unspecified, without complications (principal); Z88.8 Allergy status to other drugs, medicaments and biological substances
CPT/HCPCS: 96365; J3380

== ENCOUNTER 2024-04-25 13:46 | Outpatient (CLI) | payer BC ==
[~2024-04-25] VITALS: Ht 177.8 cm; Wt 118.0 kg
[2024-04-25 14:16] VITALS: BP 110/56; O2SAT 97
[2024-04-25] MEDS: VEDOLIZUMAB 300 MG in NS 250 ML IV ONE (14:27)
== END 2024-04-25 15:15 ==
LOC: M INFU 13:46
PROVIDERS: ATTEND Internal Medicine Gastroenterology
DX: K50.90 Crohn's disease, unspecified, without complications (principal); Z88.8 Allergy status to other drugs, medicaments and biological substances
CPT/HCPCS: 96365; J3380

== ENCOUNTER → 2024-06-15 | Outpatient (CLI) | payer BC | LOC: M CARPUL 10:20 | PROVIDERS: ATTEND Internal Medicine Cardiovascular Disease | DX: R07.9 Chest pain, unspecified (principal) ==

== ENCOUNTER 2024-06-20 14:00 | Outpatient (CLI) | payer BC ==
[~2024-06-20] VITALS: Ht 177.8 cm; Wt 118.0 kg
[2024-06-20 14:00] VITALS: BP 156/78; O2SAT 97
[2024-06-20] MEDS: VEDOLIZUMAB 300 MG in NS 250 ML IV ONE (14:20)
[2024-06-20 15:00] VITALS: BP 144/87; O2SAT 96
== END 2024-06-20 15:00 | disposition home or self-care (01) ==
LOC: M INFU 14:00
PROVIDERS: ATTEND Internal Medicine Gastroenterology
DX: K50.90 Crohn's disease, unspecified, without complications (principal); Z88.8 Allergy status to other drugs, medicaments and biological substances
CPT/HCPCS: 96365; J3380

== ENCOUNTER → 2024-07-14 | Outpatient (CLI) | payer BC ==
[2024-07-14 10:14] LABS: HEMATOCRIT 45.7 % (42.0-52.0); HEMOGLOBIN 14.9 g/dl (13.5-17.5); MEAN CORPUSCULAR HEMOGLOBIN 27.3 pg (27.0-33.0); MEAN CORPUSCULAR HGB CONC 32.6 g/dl (32.0-36.5); MEAN CORPUSCULAR VOLUME 83.7 fl (80.0-96.0); PLATELET COUNT, AUTOMATED 260 10^3/uL (150-450); RED BLOOD COUNT 5.46 10^6/uL (4.30-6.10); WHITE BLOOD COUNT 8.9 10^3/uL (4.0-10.0)
[2024-07-14 10:39] LABS: ALBUMIN 3.9 G/DL (3.2-5.2); ALKALINE PHOSPHATASE 67 U/L (40-129); ALT/SGPT 18 U/L (7.0-40); AST/SGOT < 8 U/L (<34); BILIRUBIN,TOTAL 0.4 MG/DL (0.3-1.2); BLOOD UREA NITROGEN 13 MG/DL (9-23); CALCIUM LEVEL 10.1 MG/DL (8.5-10.1); CARBON DIOXIDE LEVEL 29 MMOL/L (20-31); CHLORIDE LEVEL 105 MMOL/L (98-107); CREATININE FOR GFR 0.79 MG/DL (0.70-1.30); GLOMERULAR FILTRATION RATE > 60.0 (>60); GLUCOSE, FASTING 85 MG/DL (60-100); POTASSIUM SERUM 4.6 MMOL/L (3.5-5.1); SODIUM LEVEL 139 MMOL/L (136-145); TOTAL PROTEIN 6.7 G/DL (5.7-8.2)
[2024-07-17 13:57] LABS: PSA FREE 0.3 ng/mL; PSA TOTAL 0.9 ng/mL (< OR = 4.0)
== END ==
LOC: M WUC 08:33
PROVIDERS: ATTEND Urology
DX: E29.1 Testicular hypofunction (principal)

== ENCOUNTER → 2024-07-28 | Outpatient (CLI) | payer BC ==
[2024-07-28 13:20] LABS: BASO # 0.1 10^3/uL (0.0-0.2); BASO % 0.7 % (0.0-1.0); HEMATOCRIT 49.5 % (42.0-52.0); HEMOGLOBIN 16.1 g/dl (13.5-17.5); LYMPH # 3.2 10^3/uL (1.5-5.0); LYMPH % 33.4 % (24.0-44.0); MEAN CORPUSCULAR HEMOGLOBIN 27.9 pg (27.0-33.0); MEAN CORPUSCULAR HGB CONC 32.5 g/dl (32.0-36.5); MEAN CORPUSCULAR VOLUME 85.8 fl (80.0-96.0); MONO # 0.8 10^3/uL (0.0-0.8); MONO % 8.8 % (2.0-8.0); NEUTROPHILS # 5.4 10^3/uL (1.5-8.5); NEUTROPHILS % 56.9 % (36.0-66.0); PLATELET COUNT, AUTOMATED 241 10^3/uL (150-450); RED BLOOD COUNT 5.77 10^6/uL (4.30-6.10); WHITE BLOOD COUNT 9.4 10^3/uL (4.0-10.0)
[2024-07-28 13:29] LABS: ERYTHROCYTE SEDIMENTATION RATE 12 mm/hr (0-15)
[2024-07-28 13:52] LABS: ALKALINE PHOSPHATASE 73 U/L (40-129); ALT/SGPT 20 U/L (7.0-40); AST/SGOT < 8 U/L (<34); BILIRUBIN,TOTAL 0.6 MG/DL (0.3-1.2); BLOOD UREA NITROGEN 12 MG/DL (9-23); C REACTIVE PROTEIN QUANTITATIV < 0.50 MG/DL (<1.0); CARBON DIOXIDE LEVEL 29 MMOL/L (20-31); CHLORIDE LEVEL 102 MMOL/L (98-107); CREATININE FOR GFR 0.79 MG/DL (0.70-1.30); GLOMERULAR FILTRATION RATE > 60.0 (>60); GLUCOSE, FASTING 85 MG/DL (60-100); POTASSIUM SERUM 4.8 MMOL/L (3.5-5.1); SODIUM LEVEL 138 MMOL/L (136-145)
[2024-07-28 13:53] LABS: VITAMIN B12 LEVEL 550 PG/ML (211-911)
[2024-08-01 09:08] LABS: QuantiFERON-TB Gold Plus NEGATIVE (NEGATIVE)
== END ==
LOC: M WUC 08:28
PROVIDERS: ATTEND Internal Medicine Gastroenterology
DX: K50.00 Crohn's disease of small intestine without complications (principal)

== ENCOUNTER 2024-08-15 12:45 | Outpatient (CLI) | payer BC ==
[~2024-08-15] VITALS: Ht 177.8 cm; Wt 118.2 kg
[2024-08-15 12:35] VITALS: BP 122/72; O2SAT 96
[2024-08-15] MEDS: VEDOLIZUMAB 300 MG in NS 250 ML IV ONE (13:36)
[2024-08-15 14:17] VITALS: BP 142/80; O2SAT 96
== END 2024-08-15 14:15 | disposition home or self-care (01) ==
LOC: M INFU 12:45
PROVIDERS: ATTEND Internal Medicine Gastroenterology
DX: K50.90 Crohn's disease, unspecified, without complications (principal); Z88.8 Allergy status to other drugs, medicaments and biological substances
CPT/HCPCS: 96365; J3380

== ENCOUNTER → 2024-10-10 | Outpatient (CLI) | payer BC ==
[~2024-10-10] VITALS: Ht 177.8 cm; Wt 118.0 kg
[2024-10-10 16:22] VITALS: BP 154/99; O2SAT 97
[2024-10-10] MEDS: VEDOLIZUMAB 300 MG in NS 250 ML IV ONE (17:08)
[2024-10-10 17:18] VITALS: BP 142/78; O2SAT 97
== END ==
LOC: M INFU 16:05
PROVIDERS: ATTEND Internal Medicine Gastroenterology
DX: K50.90 Crohn's disease, unspecified, without complications (principal); Z88.8 Allergy status to other drugs, medicaments and biological substances
CPT/HCPCS: 96365; J3380

== ENCOUNTER 2024-12-05 16:13 | Outpatient (CLI) | payer BC ==
[~2024-12-05] VITALS: Ht 177.8 cm; Wt 118.0 kg
[2024-12-05 16:15] VITALS: BP 125/77; O2SAT 96
[2024-12-05] MEDS: VEDOLIZUMAB 300 MG in NS 250 ML IV ONE (16:48)
[2024-12-05 17:29] VITALS: BP 123/75; O2SAT 99
== END 2024-12-05 17:30 ==
LOC: M INFU 16:13
PROVIDERS: ATTEND Internal Medicine Gastroenterology
DX: K50.90 Crohn's disease, unspecified, without complications (principal); Z88.8 Allergy status to other drugs, medicaments and biological substances
CPT/HCPCS: 96365; J3380

== ENCOUNTER → 2025-06-28 | Outpatient (CLI) | payer BC ==
[~2025-06-28] MED LIST changes: -PRAV40TA2 PO; +PRAV40TA85 PO
[2025-06-28 12:11] LABS: PLATELET COUNT, AUTOMATED 311 10^3/uL (150-450)
[2025-06-28 12:13] LABS: ALT/SGPT 26 U/L (7.0-40); AST/SGOT 17 U/L (<34); CALCIUM LEVEL 9.5 MG/DL (8.5-10.1); CARBON DIOXIDE LEVEL 30 MMOL/L (20-31); CHLORIDE LEVEL 102 MMOL/L (98-107); CREATININE FOR GFR 0.75 MG/DL (0.70-1.30); GLOMERULAR FILTRATION RATE > 90.0 (>60); POTASSIUM SERUM 4.8 MMOL/L (3.5-5.1); SODIUM LEVEL 139 MMOL/L (136-145)
== END ==
LOC: M WUC 08:19
PROVIDERS: ATTEND Urology
DX: E29.1 Testicular hypofunction (principal)